=== PATIENT | male | born 1930 | race Caucasian/White ===

== ENCOUNTER 2016-03-31 13:15 | Emergency (ER) | payer MEDICARE, OTHER ==
--- NOTE | 2016-03-31 15:21 | ED Physician Documentation ---
Fall - HISTORIAN Historian: patient, child - HPI Stated Complaint: laceration to L knee Chief Complaint: Fall Additional Information: fall w/lac lt supra patellar area-avulsion type Onset: just prior to arrival Where: park Context: other (leg just gave way) r: moderate Associated Symptoms:: no loss of consciousness Location of Pain/Injury: lower extremity Injury to Right Extremity: none Injury to Left Extremity: knee - ROS CONST: no problems, other (has had previous episodes of legs just give-way) MS/SKIN/LYMPH: denies: weakness, numbness, neck pain, back pain, ankle swelling , leg swelling EYES/ENT: denies: problems with vision, nasal drainage CVS/RESP: none GI/: denies: problems urinating, nausea, vomiting - PAST HX Past History: COPD, other (djd) Allergies/Adverse Reactions: Allergies Allergy/AdvReac Type Severity Reaction Status Date / Time dextromethorphan HBr Allergy Verified 01/11/16 19:48 [From NyQuil] doxylamine succinate Allergy Verified 01/11/16 19:48 [From NyQuil] pseudoephedrine HCl Allergy Verified 01/11/16 19:48 [From NyQuil] hydrocodone AdvReac Mental Verified 01/11/16 19:48 Status Changes Home Medications: Ambulatory Orders Medication Instructions Recorded Arformoterol Tartrate [Brovana] 15 mcg IH BID 07/25/14 Budesonide [Pulmicort] 1 unit INH BID 07/25/14 Ipratropium [place] [Atrovent] 1 unit INH DIRECTED 07/25/14 Cyclobenzaprine HCl [Flexeril] 5 mg PO TID PRN #30 tablet 10/06/15 Chlorzoxazone 500 mg PO QID u2 10/20/15 Oxycodone HCl/Acetaminophen 1 each PO QID PRN u2 10/20/15 [Percocet 5-325 Mg Tablet] Doxycycline Hyclate 100 mg PO BID #20 tablet 01/03/16 - SOCIAL HX Smoking History: non-smoker Alcohol Use: none Drug Use: none - FAMILY HX Family History: no significant history - VITAL SIGNS Vital Signs: Vital Signs Temp Pulse Resp BP Pulse Ox 99.0 F 104 H 16 102/77 94 03/31/16 13:18 03/31/16 13:18 03/31/16 13:18 03/31/16 13:18 03/31/16 13:18 - REVIEWED ASSESSMENTS Nursing Assessment Reviewed: Yes Vitals Reviewed: Yes Procedures Wound Location: lower extremity (lt knee) Wound's Depth, Shape: irregular, flap, contused tissue Wound Explored: no foreign body removed Betadine Prep?: Yes (picked up edges exp underneath cleanse w/betadine) Anesthesia: 1% Lidocaine Wound Repaired With: sutures Suture Size/Type: 3:0 Layer Closure?: No Sterile Dressing Applied?: Yes Splint Applied?: Yes Sling Applied?: No ED Results Lab/Radiology - Radiology Radiology Impressions: xray lt knee=no apparent fracture - Orders Orders: ED Orders Category Date Time Status KNEE 3 VIEWS [RAD] Stat Exams 03/31/16 Ordered Fall Physical Exam - Physical Exam General Appearance: mild distress Head: non-tender, no swelling, no obvious injury Neck: non-tender, painless ROM Eye: REYNA, EOMI ENT: nml external inspection Resp/CVS: chest non-tender, breath sounds nml, no resp. distress, heart sounds nml Abdomen: soft, non-tender Neuro: oriented x3, sensation nml, motor nml Skin: color nml, no rash. No: cyanosis, diaphoresis, pallor Back: normal inspection, no CVA tenderness Extremities: other (jagged 3" lac supra patellar) Joint: joints nml, nml ROM, Nml gait/weight bearing. No: ligamentous instability, effusion, click/crepitus, limited ROM - Vickie Coma Score Eyes Open: Spontaneous Speech: Oriented Motor: Obeys Commands Discharge Clincal Impression: fall w/3" laceration lt knee Home Medications: Ambulatory Orders Arformoterol Tartrate [Brovana] 15 mcg IH BID 07/25/14 Budesonide [Pulmicort] 1 unit INH BID 07/25/14 Ipratropium [place] [Atrovent] 1 unit INH DIRECTED 07/25/14 Cyclobenzaprine HCl [Flexeril] 5 mg PO TID PRN #30 tablet 10/06/15 Chlorzoxazone 500 mg PO QID u2 10/20/15 Oxycodone HCl/Acetaminophen [Percocet 5-325 Mg Tablet] 1 each PO QID PRN u2 Doxycycline Hyclate 100 mg PO BID #20 tablet 01/03/16 Comments: keep clean dry chg dressing prn sutures out approx 7-10 days-renee bandage dressing-sent betadine home for cleansing keflex given-tylenol prn pain Condition: Good Disposition: 01 HOME, SELF-CARE Decision to Admit: NO Decision Time: 16:40
[2016-03-31] MEDS ORDERED: Lidocaine 1% 5ml(IM or SUTURE)(PAIN CLINIC) ONE ×2 (15:31→15:33)
--- NOTE | 2016-03-31 16:51 | Diagnostic Imaging Report ---
[facility] [address] [facility].[address] 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 History: LEFT KNEE PAIN AND LACERATION AFTER FALL Findings: The osseous structures are intact without fracture. There is mild narrowing of the tibiofemoral joint space. There is no joint effusion or soft tissue swelling. Vascular calcifications are present. Impression: 1. the of the tip No acute osseous abnormality. Electronically signed on Mar 31, 2016 3:52:56 PM LEAD MANUFACTURING ENGINEER by: Blayne FROST
[2016-03-31 17:02] VITALS: BP 135/73
== END 2016-03-31 16:45 | disposition home or self-care (01) ==
LOC: ED 13:15
DX: S81.012A Laceration without foreign body, left knee, initial encounter (principal); W19.XXXA Unspecified fall, initial encounter; Y93.9 Activity, unspecified; Y99.9 Unspecified external cause status
CPT/HCPCS: 12002; 73562; 99283; 99284

== ENCOUNTER 2016-04-01 19:31 | Emergency (ER) | payer MEDICARE, OTHER ==
[2016-04-01] MEDS ORDERED: BUPIVACAINE HCL/PF 5 MG/ML 10ML VIAL IV ONE (19:56)
[2016-04-01] MEDS: BUPIVACAINE HCL/PF 5 MG/ML 10ML VIAL IJ ONE (20:00)
[2016-04-01 20:05] VITALS: BP 88/48
--- NOTE | 2016-04-01 20:35 | ED Physician Documentation ---
General Adult - HISTORIAN Historian: patient, child (daughter, son) - HPI Stated Complaint: fell and tore stitches Chief Complaint: Laceration/Recheck/Suture Additional Information: Fell yesterday and stitches placed left knee last evening. Got up from toilet and left knee buckled this evening. All but one stitch torn apart. Per son, left knee ligaments are loose and knee is inoperable because of patient's other health problems. No LOC. No new injury. - ROS CONST: no problems - PAST HX Past History: other (cardiac disease, other (Prostate CA, constipation, COPD, CHR, arthritis, HLD)) Allergies/Adverse Reactions: Allergies Allergy/AdvReac Type Severity Reaction Status Date / Time dextromethorphan HBr Allergy Verified 01/11/16 19:48 [From NyQuil] doxylamine succinate Allergy Verified 01/11/16 19:48 [From NyQuil] pseudoephedrine HCl Allergy Verified 01/11/16 19:48 [From NyQuil] hydrocodone AdvReac Mental Verified 01/11/16 19:48 Status Changes Home Medications: Ambulatory Orders Medication Instructions Recorded Arformoterol Tartrate [Brovana] 15 mcg IH BID 07/25/14 Budesonide [Pulmicort] 1 unit INH BID 07/25/14 Ipratropium [place] [Atrovent] 1 unit INH DIRECTED 07/25/14 Cyclobenzaprine HCl [Flexeril] 5 mg PO TID PRN #30 tablet 10/06/15 Chlorzoxazone 500 mg PO QID u2 10/20/15 Oxycodone HCl/Acetaminophen 1 each PO QID PRN u2 10/20/15 [Percocet 5-325 Mg Tablet] Doxycycline Hyclate 100 mg PO BID #20 tablet 01/03/16 Cephalexin [Keflex] 500 mg PO QID #30 capsule 03/31/16 - SOCIAL HX Smoking History: non-smoker - FAMILY HX Family History: No - VITAL SIGNS Vital Signs: Vital Signs Temp Pulse Resp BP Pulse Ox 98.2 F 86 18 88/48 92 04/01/16 19:32 04/01/16 19:32 04/01/16 19:32 04/01/16 19:32 04/01/16 19:32 - REVIEWED ASSESSMENTS Nursing Assessment Reviewed: Yes Vitals Reviewed: Yes Procedures Wound Location: lower extremity (left knee) Wound's Depth, Shape: irregular (sub q, 12 cm) Wound Explored: no foreign body removed Betadine Prep?: No (hibiclens) Anesthesia: 0.5% Sensorcaine Volume of Anesthetic: 3 Wound Repaired With: sutures Suture Size/Type: 3:0 Number of Sutures: 3 (one suture remaining medially from yesterday. ) Layer Closure?: No Sterile Dressing Applied?: Yes (and renee) ED Results Lab/Radiology - Orders Orders: ED Orders Category Date Time Status Bupivacaine HCl/Pf [Marcaine 0.5%] Med 04/01/16 19:55 Discontinued 25 mg IJ NOW ONE Bupivacaine HCl/Pf [[place]aine 0.5%] Med 04/01/16 19:56 Discontinued 50 mg IV .STK-MED ONE General Adult Physical Exam - PHYSICAL EXAM GENERAL APPEARANCE: no distress EENT: ENT inspection normal NECK: normal inspection, supple RESPIRATORY: no resp distress SKIN: warm/dry, normal color, other (10-12 cm irregular laceration diagonally across left anterior knee) EXTREMITIES: no evidence of injury (except as above) NEURO: CN's nml as tested, motor nml, sensation nml Discharge Clincal Impression: Laceration of left knee Qualifiers: Encounter type: subsequent encounter Qualified Code(s): S81.012D - Laceration without foreign body, left knee, subsequent encounter Clincal Impression: (Ruled Out): Laceration of left knee with complication Additional Instructions: Keep the stitches clean and dry. Continue your antibiotics. Ask your provider to remove the stitches in 8-10 days. If the area seems to be infected return to the ER immediately. Home Medications: Ambulatory Orders Arformoterol Tartrate [Brovana] 15 mcg IH BID 07/25/14 Budesonide [Pulmicort] 1 unit INH BID 07/25/14 Ipratropium [place] [Atrovent] 1 unit INH DIRECTED 07/25/14 Cyclobenzaprine HCl [Flexeril] 5 mg PO TID PRN #30 tablet 10/06/15 Chlorzoxazone 500 mg PO QID u2 10/20/15 Oxycodone HCl/Acetaminophen [Percocet 5-325 Mg Tablet] 1 each PO QID PRN u2 Doxycycline Hyclate 100 mg PO BID #20 tablet 01/03/16 Cephalexin [Keflex] 500 mg PO QID #30 capsule 03/31/16 Condition: Good Disposition: 01 HOME, SELF-CARE Decision to Admit: NO Decision Time: 20:35
[2016-04-01] MEDS: TRIPLE ANTIBIOTIC OINTMENT PAC 1 PACKET TOP ONE (20:45)
== END 2016-04-01 20:53 | disposition home or self-care (01) ==
LOC: ED 19:31
DX: S81.012D Laceration without foreign body, left knee, subsequent encounter (principal); W19.XXXD Unspecified fall, subsequent encounter; Y93.9 Activity, unspecified; Y99.9 Unspecified external cause status
CPT/HCPCS: J3490 ×2; 12002; 99284

== ENCOUNTER 2016-04-04 15:46 | Emergency (ER) | payer MEDICARE, OTHER ==
--- NOTE | 2016-04-04 16:18 | ED Physician Documentation ---
Upper Respiratory Symptoms - HISTORIAN Historian: patient, child - HPI Chief Complaint: Cough/ Upper Respiratory Additional Information: recent exab cvough wheezing fever pmh bronchitis pneumonia-recent falls-legs just give way Onset: days ago (2-3) Duration: intermittent episodes Context: denies: recent foreign travel, insect bite(s) Associated Symptoms: fever, chills, chest pain, productive cough, shortness of breath, hurts to breathe Worsened by Deep Breath: Yes Further Comments: yes - ROS CONST/EYES: weakness CVS/RESP: shortness of breath LYMPH: other (recent lacerations lt knee fr falls naina in bath room). 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) Surgeries/Procedures: appendectomy Allergies/Adverse Reactions: Allergies Allergy/AdvReac Type Severity Reaction Status Date / Time dextromethorphan HBr Allergy Verified 01/11/16 19:48 [From NyQuil] doxylamine succinate Allergy Verified 01/11/16 19:48 [From NyQuil] pseudoephedrine HCl Allergy Verified 01/11/16 19:48 [From NyQuil] hydrocodone AdvReac Mental Verified 01/11/16 19:48 Status Changes Home Medications: Ambulatory Orders Medication Instructions Recorded Arformoterol Tartrate [Brovana] 15 mcg IH BID 07/25/14 Budesonide [Pulmicort] 1 unit INH BID 07/25/14 Ipratropium [place] [Atrovent] 1 unit INH DIRECTED 07/25/14 Cyclobenzaprine HCl [Flexeril] 5 mg PO TID PRN #30 tablet 10/06/15 Chlorzoxazone 500 mg PO QID u2 10/20/15 Oxycodone HCl/Acetaminophen 1 each PO QID PRN u2 10/20/15 [Percocet 5-325 Mg Tablet] Doxycycline Hyclate 100 mg PO BID #20 tablet 01/03/16 Cephalexin [Keflex] 500 mg PO QID #30 capsule 03/31/16 - SOCIAL HX Smoking History: non-smoker Alcohol Use: none Drug Use: none - FAMILY HX Family History: no significant history - VITAL SIGNS Vital Signs: Vital Signs Temp Pulse Resp BP Pulse Ox 99.3 F 84 22 102/63 92 04/04/16 15:46 04/04/16 15:46 04/04/16 15:46 04/04/16 15:46 04/04/16 15:46 - REVIEWED ASSESSMENTS Nursing Assessment Reviewed: Yes Vitals Reviewed: Yes ED Results Lab/Radiology - Lab Results Lab Results: Lab Results 04/04/16 04/04/16 16:55 16:55 WBC 3.40 K/ul L K/ul (4.00-12.00) RBC 3.99 M/ul M/ul (3.90-5.20) Hgb 11.9 g/dL L g/dL (12.0-18.0) Hct 36.7 % L % (37.0-53.0) MCV 92.1 fl fl (80.0-100.0) MCH 29.8 pg pg (28.0-34.0) MCHC 32.4 g/dL g/dL (30.0-36.0) RDW 15.0 % H % (11.3-14.3) Plt Count 192 K/mm3 K/mm3 (130-400) Seg Neutrophils % 66 % % (39-79) Band Neutrophils % 3 % % (0-12) Lymphocytes % 14 % L % (16-50) Monocytes % 11 % % (0-11) Eosinophils % 3 % % (0-7) Basophils % 1 % % (0-2) Reactive Lymphocytes 2 % % (0-5) Plt Morphology Comment Normal (NORMAL) RBC Morph Comment Normal (NORMAL) Sodium 135 mmol/L L mmol/L (136-145) Potassium 4.1 mmol/L mmol/L (3.5-5.0) Chloride 96 mmol/L L mmol/L (98-110) Carbon Dioxide 28 mmol/L mmol/L (20-32) BUN 24 mg/dL mg/dL (10-26) Creatinine 1.0 mg/dL mg/dL (0.4-1.5) Estimated Creat Clear 34 Est GFR ( Amer) > 60 (60 - ) Est GFR (Non-Af Amer) > 60 (60 - ) Glucose 95 mg/dL mg/dL (70-99) Calcium 9.6 mg/dL mg/dL (8.5-10.5) Total Bilirubin 0.4 mg/dL mg/dL (0.2-1.2) AST 26 U/L U/L (0-41) ALT 18 U/L U/L (0-45) Alkaline Phosphatase 67 U/L U/L (46-116) Total Protein 7.2 g/dL g/dL (6.0-8.5) Albumin 3.9 g/dL g/dL (3.0-5.5) - Radiology Radiology Impressions: chest atelectalis nodules udo - Orders Orders: ED Orders Category Date Time Status Place Saline Lock/IV Now Care 04/04/16 16:14 Active CHEST P.A.&LAT 2 VIEWS [RAD] Stat Exams 04/04/16 Completed ARTERIAL BLOOD GAS Stat Lab 04/04/16 Uncollected CBC/PLATELET/DIFF Routine Lab 04/04/16 16:55 Completed CMP Stat Lab 04/04/16 16:55 Completed Ipratropium/Albuterol Sulfate [Duoneb] Med 04/04/16 17:24 Discontinued 3 ml NEB NOW ONE Ipratropium/Albuterol Sulfate [Duoneb] Med 04/04/16 17:25 Discontinued 3 ml NEB NOW ONE EKG WITH COMPARISON Stat Ther 04/04/16 Ordered Upper Respiratory Symptoms - EXAM General Appearance: mild distress, moderate distress EENT: eyes nml inspection, ear nml, pharynx nml, airway nml. No: pain over sinuses, pharyngeal erythema Neck: normal inspection Respiratory: speaks full sentences, decreased air movement, wheezes, rales. No : breath sounds nml Abdomen: non-tender CVS: reg rate & rhythm, heart sounds normal Skin: color nml, no rash, warm,dry Extremities: No: normal range of motion Neuro/Psych: oriented x3, neuro intact, mood/affect nml Discharge Clincal Impression: Asthma, very advanced djd, frequent falls Referrals: Diego Ross MD [Primary Care Provider] - 2 Days Home Medications: Ambulatory Orders Arformoterol Tartrate [Brovana] 15 mcg IH BID 07/25/14 Budesonide [Pulmicort] 1 unit INH BID 07/25/14 Ipratropium [place] [Atrovent] 1 unit INH DIRECTED 07/25/14 Cyclobenzaprine HCl [Flexeril] 5 mg PO TID PRN #30 tablet 10/06/15 Chlorzoxazone 500 mg PO QID u2 10/20/15 Oxycodone HCl/Acetaminophen [Percocet 5-325 Mg Tablet] 1 each PO QID PRN u2 Doxycycline Hyclate 100 mg PO BID #20 tablet 01/03/16 Cephalexin [Keflex] 500 mg PO QID #30 capsule 03/31/16 Comments: pt relates breathing much better Condition: Fair Disposition: 01 HOME, SELF-CARE Decision to Admit: NO Decision Time: 18:32
[2016-04-04 17:01] LABS: MEAN CORPUSCULAR HEMOGLOBIN 29.8 pg (28.0-34.0)
[2016-04-04 17:18] LABS: eGFR (African) > 60; eGFR (Non-African) > 60
[2016-04-04] MEDS ORDERED: IPRATROPIUM/ALBUTEROL SULFATE 3 ML AMPUL.NEB NEB ONE (17:24)
[2016-04-04 17:30] LABS: BASOPHILS % 1 % (0-2); EOSINOPHILS % 3 % (0-7); MONOCYTES % 11 % (0-11); SEGMENTED NEUTROPHILS % 66 % (39-79)
--- NOTE | 2016-04-04 17:38 | Diagnostic Imaging Report ---
[facility] [address] [facility].[address] 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 Questionable lung masses in the upper lobes right more than left in the range of [address] scan of the chest is required. 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
[2016-04-04] MEDS: IPRATROPIUM/ALBUTEROL SULFATE 3 ML AMPUL.NEB NEB ONE (18:09)
[2016-04-04 19:05] VITALS: BP 113/74
== END 2016-04-04 18:40 | disposition home or self-care (01) ==
LOC: ED 15:46
DX: J45.909 Unspecified asthma, uncomplicated (principal); M19.90 Unspecified osteoarthritis, unspecified site; Z91.81 History of falling
CPT/HCPCS: 71020; 80053; 85025; 99283; S1016

== ENCOUNTER 2016-04-24 11:53 | Emergency (ER) | payer MEDICARE, OTHER ==
[2016-04-24] MEDS ORDERED: methylPREDNISolone SOD SUCC 40 MG/ML VIAL IM ONE (12:21)
--- NOTE | 2016-04-24 12:25 | ED Physician Documentation ---
General Adult - HISTORIAN Historian: patient, child (daughter) - HPI Stated Complaint: Diarrhea, Knee Pain Chief Complaint: General Adult Additional Information: Takes 200 mg docusate each morning, then an additional 100 mg sometimes in the afternoon. Also given MOM yesterday. During the night he had several bowel movements and now left knee is sore. Has severe DJD left knee and is not a surgical candidate. Wants a shot for the knee p[ain (hydrocortisone) and something for the diarrhea. Also takes oxycodone 5/325 at HS for knee pain. - ROS CONST: no problems - PAST HX Past History: CHF, other (HLD, arthritids, prostate cancer, COPDcardiac disease) Allergies/Adverse Reactions: Allergies Allergy/AdvReac Type Severity Reaction Status Date / Time dextromethorphan HBr Allergy Verified 04/24/16 12:06 [From NyQuil] doxylamine succinate Allergy Verified 04/24/16 12:06 [From NyQuil] pseudoephedrine HCl Allergy Verified 04/24/16 12:06 [From NyQuil] hydrocodone AdvReac Mental Verified 04/24/16 12:06 Status Changes Home Medications: Ambulatory Orders Medication Instructions Recorded Arformoterol Tartrate [Brovana] 15 mcg IH BID 07/25/14 Budesonide [Pulmicort] 1 unit INH BID 07/25/14 Ipratropium [place] [Atrovent] 1 unit INH DIRECTED 07/25/14 Oxycodone HCl/Acetaminophen 1 each PO QID PRN u2 10/20/15 [Percocet 5-325 Mg Tablet] - SOCIAL HX Smoking History: non-smoker - FAMILY HX Family History: No - VITAL SIGNS Vital Signs: Vital Signs Temp Pulse Resp BP Pulse Ox 97.8 F 96 H 18 127/77 95 04/24/16 11:55 04/24/16 11:55 04/24/16 11:55 04/24/16 11:55 04/24/16 11:55 - REVIEWED ASSESSMENTS Nursing Assessment Reviewed: Yes Vitals Reviewed: Yes ED Results Lab/Radiology - Orders Orders: ED Orders Category Date Time Status methylPREDNISolone SOD SUCC [Solu-MEDROL] Med 04/24/16 12:21 Once 40 mg IM NOW ONE General Adult Physical Exam - PHYSICAL EXAM GENERAL APPEARANCE: no distress EENT: eye inspection normal NECK: normal inspection RESPIRATORY: no resp distress SKIN: warm/dry, normal color, other (Has 2.5x4 cm healing, area left ant knee) NEURO: CN's nml as tested, motor nml, sensation nml Discharge Clincal Impression: Osteoarthritis Qualifiers: Osteoarthritis location: knee Osteoarthritis type: unspecified Laterality: left Qualified Code(s): 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 Home Medications: Ambulatory Orders Arformoterol Tartrate [Brovana] 15 mcg IH BID 07/25/14 Budesonide [Pulmicort] 1 unit INH BID 07/25/14 Ipratropium [place] [Atrovent] 1 unit INH DIRECTED 07/25/14 Oxycodone HCl/Acetaminophen [Percocet 5-325 Mg Tablet] 1 each PO QID PRN u2 Condition: Good Disposition: 01 HOME, SELF-CARE Decision to Admit: NO Decision Time: 12:30
[2016-04-24 13:10] VITALS: BP 118/68
== END 2016-04-24 13:06 | disposition home or self-care (01) ==
LOC: ED 11:53
DX: M17.12 Unilateral primary osteoarthritis, left knee (principal)
CPT/HCPCS: 96372; 99283; J2920; J1030

== ENCOUNTER 2016-06-27 18:43 | Emergency (ER) | payer MEDICARE, OTHER ==
[2016-06-27] MEDS ORDERED: NORMAL SALINE 500 ML IV.SOLN IV ONE (19:29)
[2016-06-27] MEDS ORDERED: 0.9 % SODIUM CHLORIDE 1,000 ML IV ONE (19:33)
[2016-06-27 19:38] LABS: BASOPHILS % 0.4 (0.0-1.5); EOSINOPHILS % 1.1 % (0.0-6.8); MEAN CORPUSCULAR VOLUME 92.4 fl (80.0-100.0); MONOCYTES % 7.6 % (0.0-11.0); NEUTROPHILS # 9.3 # k/uL (1.4-7.7)
[2016-06-27] MEDS: IPRATROPIUM/ALBUTEROL SULFATE 3 ML AMPUL.NEB NEB ONE (19:40)
[2016-06-27 19:50] LABS: eGFR (African) > 60; eGFR (Non-African) > 60
--- NOTE | 2016-06-27 21:06 | ED Physician Documentation ---
Dyspnea - HISTORIAN Historian: child - HPI Stated Complaint: airway closing Chief Complaint: Dyspnea Additional Information: he isn't complaining but family said he's not responding to the home breathing treatments. no other complaints Onset: days ago Duration: continues in ED Initiating Event: upper respiratory illness Severity: moderate Exacerbated By: exertion Further Comments: no - ROS CONST: no problems EYES/ENT: none GI/: none NEURO/PSYCH: denies: headache MS/SKIN/LYMPH: none - PAST HX Lung Disease: COPD, pneumonia Cardiac Disease: none PE Risk Factors: none Surgeries/Procedures: none Other History: none Immunizations: UTD Allergies/Adverse Reactions: Allergies Allergy/AdvReac Type Severity Reaction Status Date / Time dextromethorphan HBr Allergy Verified 06/27/16 19:03 [From NyQuil] doxylamine succinate Allergy Verified 06/27/16 19:03 [From NyQuil] pseudoephedrine HCl Allergy Verified 06/27/16 19:03 [From NyQuil] hydrocodone AdvReac Mental Verified 06/27/16 19:03 Status Changes Home Medications: Ambulatory Orders Medication Instructions Recorded Arformoterol Tartrate [Brovana] 15 mcg IH BID 07/25/14 Budesonide [Pulmicort] 1 unit INH BID 07/25/14 Ipratropium [place] [Atrovent] 1 unit INH DIRECTED 07/25/14 - SOCIAL HX Smoking History: quit greater than 1 year Alcohol Use: none Drug Use: none - FAMILY HX Family History: none - VITAL SIGNS Vital Signs: Vital Signs Temp Pulse Resp BP Pulse Ox 118/68 04/24/16 13:06 - REVIEWED ASSESSMENTS Nursing Assessment Reviewed: Yes Vitals Reviewed: Yes ED Results Lab/Radiology - Lab Results Lab Results: Lab Results 06/27/16 06/27/16 19:31 19:31 WBC 11.00 K/ul K/ul (4.00-12.00) RBC 4.11 M/ul M/ul (3.90-5.20) Hgb 12.3 g/dL g/dL (12.0-18.0) Hct 38.0 % % (37.0-53.0) MCV 92.4 fl fl (80.0-100.0) MCH 30.0 pg pg (28.0-34.0) MCHC 32.4 g/dL g/dL (30.0-36.0) RDW 15.2 % H % (11.3-14.3) Plt Count 201 K/mm3 K/mm3 (130-400) Neut % (Auto) 84.9 % H % (39.0-79.0) Lymph % (Auto) 3.9 % L % (16.0-50.0) [place] % (Auto) 7.6 % % (0.0-11.0) Eos % (Auto) 1.1 % % (0.0-6.8) Baso % (Auto) 0.4 (0.0-1.5) Neut # 9.3 # k/uL H # k/uL (1.4-7.7) Lymph # 0.4 # k/uL L # k/uL (0.6-4.0) [place] # 0.8 # k/uL # k/uL (0.0-0.9) Eos # 0.1 # k/uL # k/uL (0.0-0.6) Baso # 0.0 # k/uL # k/uL (0.0-0.5) Reactive Lymphs % 2.0 % % (0.0-5.0) Reactive Lymphs # 0.2 # k/uL # k/uL (0.0-0.8) Sodium 139 mmol/L mmol/L (136-145) Potassium 3.9 mmol/L mmol/L (3.5-5.0) Chloride 107 mmol/L mmol/L (98-110) Carbon Dioxide 24 mmol/L mmol/L (20-32) BUN 39 mg/dL H mg/dL (10-26) Creatinine 1.0 mg/dL mg/dL (0.4-1.5) Estimated Creat Clear 32 Est GFR ( Amer) > 60 (60 - ) Est GFR (Non-Af Amer) > 60 (60 - ) Glucose 123 mg/dL H mg/dL (70-99) Calcium 9.5 mg/dL mg/dL (8.5-10.5) Total Bilirubin 0.4 mg/dL mg/dL (0.2-1.2) AST 19 U/L U/L (0-41) ALT 17 U/L U/L (0-45) Alkaline Phosphatase 70 U/L U/L (46-116) Creatine Kinase 98 U/L U/L (0-225) Total Protein 7.0 g/dL g/dL (6.0-8.5) Albumin 4.2 g/dL g/dL (3.0-5.5) - Radiology Radiology Impressions: bronchitis lung nodule - Orders Orders: ED Orders Category Date Time Status Place Saline Lock/IV Now Care 06/27/16 19:26 Active CHEST P.A.&LAT 2 VIEWS [RAD] Stat Exams 06/27/16 19:26 Taken CBC/PLATELET/DIFF Routine Lab 06/27/16 19:31 Completed CMP Routine Lab 06/27/16 19:31 Completed CREATINE KINASE Routine Lab 06/27/16 19:31 Completed 0.9 % Sodium Chloride [Normal Saline] Med 06/27/16 19:29 Once 1,000 ml IV NOW ONE 0.9 % Sodium Chloride [Normal Saline] 1,000 ml Med 06/27/16 19:33 Discontinued IV .STK-MED Ipratropium/Albuterol Sulfate [Duoneb] Med 06/27/16 19:26 Discontinued 3 ml NEB NOW ONE Levofloxacin [Levaquin] Med 06/27/16 21:04 Once 500 mg PO NOW ONE Oxygen Daily Oxygen 06/27/16 19:30 Ordered Dyspnea Physical Exam - EXAM General Appearance: no acute distress, alert EENT: ENT inspection normal, pharynx normal. No: no signs of dehydration Neck: nml inspection Respiratory: no resp. distress, breath sounds nml, no pain on inspiration, speaks full sentences CVS: tachycardia Abdomen: non-tender Skin: color nml, no rash Extremities: non-tender Neuro/Psych: oriented x3, mood/affect nml, cognition abnml ([facility]) Discharge Clincal Impression: Bronchitis, Absolute hypovolemia Home Medications: Ambulatory Orders Arformoterol Tartrate [Brovana] 15 mcg IH BID 07/25/14 Budesonide [Pulmicort] 1 unit INH BID 07/25/14 Ipratropium [place] [Atrovent] 1 unit INH DIRECTED 07/25/14 Condition: Stable Disposition: 01 HOME, SELF-CARE Decision to Admit: NO Date of Decison to Admit: 06/27/16 Decision Time: 21:16
[2016-06-27] MEDS: LEVOFLOXACIN 500 MG TABLET PO ONE (21:14)
[2016-06-27 21:34] VITALS: BP 118/62
--- NOTE | 2016-06-28 06:40 | Diagnostic Imaging Report ---
NEENA WAGONER [facility] [address] [facility].[address] [address] Report Submission Date: June 27, 2016 8:22:28 PM CDT Patient Study Name: CORY BASILIO Date: June 27, 2016 7:59:53 PM CDT Modality Type: CR Gender: M Description: CHEST : [birth year] Institution: [facility] Physician: NEENA WAGONER Chest 2 views History: Shortness of breath Findings: Bibasilar reticular opacities are unchanged since April 04, 2016. There is no confluent air space infiltrate or pleural effusion. A small right upper lobe nodule is unchanged in retrospect. Aortic atherosclerosis and advanced bilateral shoulder erosive arthropathy are again noted. Heart size is normal. Impression: 1. Bibasilar reticular opacities without change, suggesting atelectasis and/or bronchitis. 2. Indeterminate right upper lobe nodule. Recommend nonemergent chest CT followup. 3. Atherosclerosis and advanced bilateral shoulder erosive arthropathy. Electronically signed on June 27, 2016 8:22:28 PM CDT by: Dennis FROST
== END 2016-06-27 21:33 | disposition home or self-care (01) ==
LOC: ED 18:43
DX: J20.9 Acute bronchitis, unspecified (principal)
CPT/HCPCS: 71020; 80053; 82550; 85025; J7030; 96360; 99283; S1016

== ENCOUNTER 2016-08-28 10:44 | Emergency (ER) | payer MEDICARE, OTHER ==
[2016-08-28 11:49] VITALS: BP 115/69
--- NOTE | 2016-08-28 12:48 | ED Physician Documentation ---
Fall - HISTORIAN Historian: patient, child - HPI Chief Complaint: Fall Additional Information: FELL IN BEDROOM APPROX 1 MO AGO ON LT ELBOW-PRKOG WORSE AND NOW SHOULDER SIG PAIN. HURTS TO MOVE ELBOW AND SHOULDER-OROG WORSE Where: home Context: lost balance r: moderate Associated Symptoms:: no loss of consciousness Further Comments: yes (PT SLIGHT BUILD AND APPEARS UNDER WEIGHT-LT CHEST ALSO BOTHERS) - ROS CONST: no problems MS/SKIN/LYMPH: weakness EYES/ENT: none CVS/RESP: none GI/: denies: problems urinating, nausea, vomiting - PAST HX Past History: asthma, COPD (BRONCHITIS AND CA SKIN-REMOVED) Allergies/Adverse Reactions: Allergies Allergy/AdvReac Type Severity Reaction Status Date / Time dextromethorphan HBr Allergy Verified 08/28/16 11:23 [From NyQuil] doxylamine succinate Allergy Verified 08/28/16 11:23 [From NyQuil] pseudoephedrine HCl Allergy Verified 08/28/16 11:23 [From NyQuil] hydrocodone AdvReac Mental Verified 08/28/16 11:23 Status Changes Home Medications: Ambulatory Orders Medication Instructions Recorded Arformoterol Tartrate [Brovana] 15 mcg IH BID 07/25/14 Budesonide [Pulmicort] 1 unit INH BID 07/25/14 Ipratropium [place] [Atrovent] 1 unit INH DIRECTED 07/25/14 - SOCIAL HX Smoking History: non-smoker Alcohol Use: none Drug Use: none - FAMILY HX Family History: no significant history - VITAL SIGNS Vital Signs: Vital Signs Temp Pulse Resp BP Pulse Ox 118/62 06/27/16 21:33 - REVIEWED ASSESSMENTS Nursing Assessment Reviewed: Yes Vitals Reviewed: Yes ED Results Lab/Radiology - Radiology Radiology Impressions: marked djd probable fx olecranon fx - Orders Orders: ED Orders Category Date Time Status CHEST P.A.&LAT 2 VIEWS [RAD] Stat Exams 08/28/16 Ordered ELBOW 3 VIEWS [RAD] Stat Exams 08/28/16 Ordered SHOULDER 2 VIEWS OR MORE [RAD] Stat Exams 08/28/16 Ordered Fall Physical Exam - Physical Exam General Appearance: mild distress, moderate distress Head: non-tender, no swelling, no obvious injury Neck: non-tender, painless ROM, trachea midline Eye: REYNA, EOMI Resp/CVS: no ecchymosis, breath sounds nml, no resp. distress, heart sounds nml , rib tenderness (ON LEFT) Abdomen: soft, non-tender Neuro: oriented x3, sensation nml, motor nml, mood/affect nml Skin: color nml, no rash. No: cyanosis, diaphoresis Joint: limited ROM (LT SHOULDER ELBOW) - [place] Coma Score Eyes Open: Spontaneous Speech: Oriented Motor: Obeys Commands Discharge Clincal Impression: fracture elbow and shoulder fr fall, very marked djd Referrals: Diego Ross MD [Primary Care Provider] - 2 Days Additional Instructions: shoulder immob---f/u w/orthopedics Home Medications: Ambulatory Orders Arformoterol Tartrate [Brovana] 15 mcg IH BID 07/25/14 Budesonide [Pulmicort] 1 unit INH BID 07/25/14 Ipratropium [place] [Atrovent] 1 unit INH DIRECTED 07/25/14 Condition: Good Disposition: 01 HOME, SELF-CARE Decision to Admit: NO Decision Time: 12:48
--- NOTE | 2016-08-28 16:24 | Diagnostic Imaging Report ---
[facility] [address] [facility].[address] [address] Report Submission Date: Aug 28, 2016 11:52:46 AM CDT Patient Study Name: CORY BASILIO Date: Aug 28, 2016 11:23:29 AM CDT Modality Type: CR Gender: M Description: UPPER EXTREMITY : [birth year] Institution: [facility] Physician: ENEDELIA PATRICK - ER Examination: Plain film elbow History: Fall Comparison exams: None provided Findings: 4 views of the elbow demonstrates diffuse osteopenia. Lucency involving the olecranon. Radial head and distal humerus without cortical irregularity. Anterior sail sign. Impression: Olecranon fracture with joint effusion. Electronically signed on Aug 28, 2016 11:52:46 AM CDT by: Edgard FROST
--- NOTE | 2016-08-28 16:25 | Diagnostic Imaging Report ---
[facility] [address] [facility] [address] [place], [place]. [address] Report Submission Date: Aug 28, 2016 11:50:20 AM CDT Patient Study Name: CORY BASILIO Date: Aug 28, 2016 11:15:46 AM CDT Modality Type: CR Gender: M Description: CHEST : [birth year] Institution: [facility] Physician: ENEDELIA PATRICK - ER Examination: PA and lateral chest. History: Evaluate lung bishop. Comparison exam: 27 Jun 2016 Findings: PA lateral chest demonstrate a normal cardiac silhouette. Tortuosity of the thoracic aorta with vascular calcifications involving the aortic arch. Lungs without focal infiltrative process. No blunting of the costophrenic margins. Significant degenerative disease of the shoulder articulations. Impression: No acute pulmonary process Electronically signed on Aug 28, 2016 11:50:20 AM CDT by: Edgard FROST
--- NOTE | 2016-08-28 16:25 | Diagnostic Imaging Report ---
[facility] [address] [facility].[address] [address] Report Submission Date: Aug 28, 2016 11:48:16 AM CDT Patient Study Name: CORY BASILIO Date: Aug 28, 2016 11:14:23 AM CDT Modality Type: CR Gender: M Description: SHOULDER : [birth year] Institution: [facility] Physician: ENEDELIA PATRICK - ER Examination: Plain film shoulder History: Fall Comparison exams: None provided Findings: 3 views of the shoulder demonstrates diffuse osteopenia. Resorption of the distal clavicle. Elevation of the humeral head. Region of sclerosis traversing the humeral head/neck. Impression: Significant degenerative changes. Likely impaction injury/fracture the humeral head/neck. Electronically signed on Aug 28, 2016 11:48:16 AM CDT by: Edgard FROST
== END 2016-08-28 12:54 | disposition home or self-care (01) ==
LOC: ED 10:44
DX: S42.402A Unspecified fracture of lower end of left humerus, initial encounter for closed fracture (principal); S42.92XA Fracture of left shoulder girdle, part unspecified, initial encounter for closed fracture; W19.XXXA Unspecified fall, initial encounter; Y93.9 Activity, unspecified; Y99.9 Unspecified external cause status
CPT/HCPCS: 71020; 73030; 73080; 99283

== ENCOUNTER 2016-11-22 11:40 | Emergency (ER) | payer MEDICARE, OTHER ==
--- NOTE | 2016-11-22 11:50 | ED Physician Documentation ---
General Adult - HISTORIAN Historian: patient, child - HPI Stated Complaint: sore area on left great toe since this am Chief Complaint: Skin Rash Onset: hours (5) Timing: still present, worse since Severity: moderate Modifying Factors: no modifying factors Context: Stabbing pain in the toe and in foot now Quality: Stabbing Location: Left great toe into midfoor Further Comments: no Last known Well Date: 11/21/16 Last Known Well Time: 09:00 Last known Well Code/Unknown Code: Unknown - ROS CONST: no problems. denies: fever, sweating, recent illness, weakness EYES/ENT: none CVS/RESP: none GI/: none MS/SKIN/LYMPH: other (great toe - left foot with redness and inflammation ) - PAST HX Past History: other (history of skin cancer ) Other History: none Surgeries/Procedures: other (history of skin cancer removal and appy ) Immunizations: referred to PCP Allergies/Adverse Reactions: Allergies Allergy/AdvReac Type Severity Reaction Status Date / Time dextromethorphan HBr Allergy Verified 11/22/16 12:05 [From NyQuil] doxylamine succinate Allergy Verified 11/22/16 12:05 [From NyQuil] pseudoephedrine HCl Allergy Verified 11/22/16 12:05 [From NyQuil] hydrocodone AdvReac Mental Verified 11/22/16 12:05 Status Changes Home Medications: Ambulatory Orders Medication Instructions Recorded Arformoterol Tartrate [Brovana] 15 mcg IH BID 07/25/14 Budesonide [Pulmicort] 1 unit INH BID 07/25/14 Ipratropium [place] [Atrovent] 1 unit INH DIRECTED 07/25/14 - SOCIAL HX Smoking History: non-smoker Alcohol Use: none Drug Use: none - FAMILY HX Family History: Yes - VITAL SIGNS Vital Signs: Vital Signs Temp Pulse Resp BP Pulse Ox 115/69 08/28/16 12:54 - REVIEWED ASSESSMENTS Nursing Assessment Reviewed: Yes Vitals Reviewed: Yes General Adult Physical Exam - PHYSICAL EXAM GENERAL APPEARANCE: no distress EENT: eye inspection normal, ENT inspection normal, pharynx normal, no signs of dehydration NECK: normal inspection RESPIRATORY: no resp distress CVS: reg rate & rhythm, heart sounds normal, equal pulses ABDOMEN: soft, no organomegaly, normal bowel sounds RECTAL: mass SKIN: other (area on left great toe with redness and inflammation extending in to mid foot -- Pulses + Sensation +) NEURO: oriented X3, CN's nml as tested, motor nml Discharge Clincal Impression: Skin abnormalities Referrals: Diego Ross MD [Primary Care Provider] - 2 Days Condition: Stable Disposition: 01 HOME, SELF-CARE Decision to Admit: NO Date of Decison to Admit: 11/22/16 Decision Time: 12:04
[2016-11-22 12:05] VITALS: BP 128/63
== END 2016-11-22 12:15 | disposition home or self-care (01) ==
LOC: ED 11:40
DX: R21 Rash and other nonspecific skin eruption (principal)
CPT/HCPCS: 99283

== ENCOUNTER 2016-11-25 20:17 | Emergency (ER) | payer MEDICARE, OTHER ==
[2016-11-25] MEDS ORDERED: Lidocaine 1% 5ml(IM or SUTURE)(PAIN CLINIC) ONE (20:32)
[2016-11-25] MEDS ORDERED: Lidocaine 1% 5ml(IM or SUTURE)(PAIN CLINIC) IJ ONE (20:40)
[2016-11-25 20:48] VITALS: BP 135/65
--- NOTE | 2016-11-25 21:02 | ED Physician Documentation ---
Abscess - HISTORIAN Historian: patient, child - HPI Stated Complaint: toe/foot pain Chief Complaint: Abscess Additional Information: abscess dorsum lt great toe here 3days ago rec baCTRIM ds - better - then worse- ready for i and d. Onset: days ago (5) Timing: worse Duration: worse Location: LLE Quality: itchy, painful, burning Identified Cause?: Yes (suspect MRSA) Context: Medication Exposure: antibiotic Context: Other Exposure: infectious illness - ROS CONST: no problems CVS/RESP: denies: chest pain, shortness of breath EYES/ENT: denies: eye redness, eye itching GI/: denies: abdominal pain, problems urinating MS/SKIN/LYMPH: none NEURO/PSYCH: none - PAST HX Past History: other (COPD) Surgeries/Procedures: Yes (APPY) Allergies/Adverse Reactions: Allergies Allergy/AdvReac Type Severity Reaction Status Date / Time dextromethorphan HBr Allergy Verified 11/25/16 20:25 [From NyQuil] doxylamine succinate Allergy Verified 11/25/16 20:25 [From NyQuil] pseudoephedrine HCl Allergy Verified 11/25/16 20:25 [From NyQuil] hydrocodone AdvReac Mental Verified 11/25/16 20:25 Status Changes Home Medications: Ambulatory Orders Medication Instructions Recorded Arformoterol Tartrate [Brovana] 15 mcg IH BID 07/25/14 Budesonide [Pulmicort] 1 unit INH BID 07/25/14 Ipratropium [place] [Atrovent] 1 unit INH DIRECTED 07/25/14 Sulfamethoxazole/Trimethoprim 1 each PO BID 11/25/16 [Bactrim Ds] - SOCIAL HX Smoking History: non-smoker Alcohol Use: none Drug Use: none - FAMILY HX Family History: none (NO PREV MRSA) - VITAL SIGNS Vital Signs: Vital Signs Temp Pulse Resp BP Pulse Ox 98.7 F 93 H 16 135/65 98 11/25/16 20:20 11/25/16 20:20 11/25/16 20:20 11/25/16 20:20 11/25/16 20:20 - REVIEWED ASSESSMENTS Nursing Assessment Reviewed: Yes Vitals Reviewed: Yes Procedures Site: LT GR TOE Blade Size: 15 I & D Procedure: betadine prep, sterile drapes applied, sterile dressing applied ED Results Lab/Radiology - Orders Orders: ED Orders Category Date Time Status Lidocaine 1% 5ml(IM or SUTURE) [Xylocaine] Med 11/25/16 20:32 Discontinued 50 mg .ROUTE .STK-MED ONE Abscess Physical Exam - EXAM General Appearance: mild distress Skin: warm,dry, pointing fluctuant with erythema. No: cyanotic, diaphoretic Location: other (LT GREAT TOE) Symptoms: tenderness Extremities: edema Respiratory: no resp distress, chest non-tender, breath sounds normal CVS: reg. rate & rhythm, heart sounds nml Abdomen: non-tender Neuro/Psych: oriented x3, CN's nml as tested, motor nml, sensation nml, mood/ affect nml Discharge Clincal Impression: ABSCESS LT GR TOE-SUSPECT MRSA Referrals: Diego Ross MD [Primary Care Provider] - 2 Days Comments: FAMILY GIVED BETADINE 4X4'S GAUZE AND INST ON DRESSING CHG AND ADVISED OF THE VERY CONTAGIOUS NATURE OF THE CONDITION Condition: Good Disposition: 01 HOME, SELF-CARE Decision to Admit: NO Decision Time: 21:07
== END 2016-11-25 21:00 | disposition home or self-care (01) ==
LOC: ED 20:17
DX: L02.612 Cutaneous abscess of left foot (principal)
CPT/HCPCS: 10060; 99283

== ENCOUNTER 2016-11-28 12:13 | Emergency (ER) | payer MEDICARE, OTHER ==
--- NOTE | 2016-11-28 12:53 | ED Physician Documentation ---
Lower Extremity Problem - HISTORIAN Historian: patient, child - HPI Stated Complaint: knee pain Chief Complaint: Lower Extremity Problem Additional Information: ac exab ch knee pain lt side-gets occ steroid shots Location of Injury: R knee Timing: worse Recent Injury: No Quality: pain, swelling Exacerbated By: walking Associated Symptoms: denies: chest pain, shortness of breath - ROS CONST: no problems MS/SKIN/LYMPH: none CVS/RESP: none GI/: none EYES/ENT: none - PAST HX Past History: other (htn chronic pain pt) PE Risk Factors: hypertension Surgeries/Procedures: other (I AND D lt great toe suspect MRSA) Allergies/Adverse Reactions: Allergies Allergy/AdvReac Type Severity Reaction Status Date / Time dextromethorphan HBr Allergy Verified 11/28/16 12:32 [From NyQuil] doxylamine succinate Allergy Verified 11/28/16 12:32 [From NyQuil] pseudoephedrine HCl Allergy Verified 11/28/16 12:32 [From NyQuil] hydrocodone AdvReac Mental Verified 11/28/16 12:32 Status Changes Home Medications: Ambulatory Orders Medication Instructions Recorded Arformoterol Tartrate [Brovana] 15 mcg IH BID 07/25/14 Budesonide [Pulmicort] 1 unit INH BID 07/25/14 Ipratropium [place] [Atrovent] 1 unit INH DIRECTED 07/25/14 Sulfamethoxazole/Trimethoprim 1 each PO BID 11/25/16 [Bactrim Ds] Sulfamethoxazole/Trimethoprim 1 each PO BID #8 tablet 11/28/16 [Bactrim Ds] - SOCIAL HX Smoking History: non-smoker Alcohol Use: none Drug Use: none - FAMILY HX Family History: no significant history - VITAL SIGNS Vital Signs: Vital Signs Temp Pulse Resp BP Pulse Ox 99.5 F 86 16 118/66 98 11/28/16 12:24 11/28/16 12:24 11/28/16 12:24 11/28/16 12:24 11/28/16 12:24 - REVIEWED ASSESSMENTS Nursing Assessment Reviewed: Yes Lower Extremity Problem - EXAM General Appearance: moderate distress (lt knee slight swelling pain w/movement) Neuro/Tendon: normal sensation, normal motor functions, normal tendon functions EENT: no signs of dehydration RESPIRATORY: no resp distress, chest non-tender, breath sounds normal CVS: reg rate & rhythm, heart sounds normal JOINT: No: joints nml (sig djd) VASCULAR: no vascular compromise NEURO/PSYCH: oriented X3, CN's nml as tested, motor nml, sensation nml, mood/ affect nml SKIN: warm/dry, normal color. No: cyanosis, diaphoresis, jaundice Discharge Clincal Impression: acute exaberation lt knee pain, recent I AND D LT GR TOE-MRSA Prescriptions: Sulfamethoxazole/Trimethoprim [Bactrim Ds] 1 each PO BID #8 tablet Referrals: Diego Ross MD [Primary Care Provider] - 2 Days Comments: DRINK PLENTY WATER W/BACTRIM Condition: Fair Disposition: 01 HOME, SELF-CARE Decision to Admit: NO Decision Time: 12:59
[2016-11-28] MEDS ORDERED: methylPREDNISolone ACETATE 80 MG/ML VIAL IM ONE (13:00)
[2016-11-28] MEDS: methylPREDNISolone ACETATE 80 MG/ML VIAL IM PRN (13:03)
[2016-11-28 13:19] VITALS: BP 126/65
== END 2016-11-28 13:14 | disposition home or self-care (01) ==
LOC: ED 12:13
DX: M25.562 Pain in left knee (principal)
CPT/HCPCS: J1040 ×2; 96372; 99283

== ENCOUNTER 2016-12-24 10:47 | Inpatient (IN) | payer MEDICARE, OTHER ==
--- NOTE | 2016-12-24 11:13 | ED Physician Documentation ---
Dyspnea - HISTORIAN Historian: patient - HPI Chief Complaint: General Adult Additional Information: Patient states that he has had OA for some years especially with his shoulder, hips and knees. Since the weather has been changing it has gotten worse and he is having more pain. Usually takes some hydrocodone and celebrex for the pain. Patient denies any fever or chills. Has been having some increasing SOB and HESTER over the last several days. Has a productive sounding cough with unknown color of phlegm. No hemophysis noted. Patient does have COPD. Has been having some increase wheezing at times. Patient nicolás any chest pain or pressure other then related to arthritis. Onset: other Duration: continues in ED Context: OA pain Severity: moderate Exacerbated By: change in position Associated Symptoms: productive cough. denies: chills, fever, sweating, chest pain - ROS CONST: no problems GI/: denies: abdominal pain, problems urinating, vomiting, nausea MS/SKIN/LYMPH: neck pain, back pain, other (shoulder pain) - PAST HX Lung Disease: COPD Surgeries/Procedures: appendectomy, other (skin cancer remove) Other History: other (COPD, OA) Immunizations: pneumovax (? pnuemonia 23). denies: influenza (not this year) Allergies/Adverse Reactions: Allergies Allergy/AdvReac Type Severity Reaction Status Date / Time dextromethorphan HBr Allergy Verified 11/28/16 12:32 [From NyQuil] doxylamine succinate Allergy Verified 11/28/16 12:32 [From NyQuil] pseudoephedrine HCl Allergy Verified 11/28/16 12:32 [From NyQuil] hydrocodone AdvReac Mental Verified 11/28/16 12:32 Status Changes Home Medications: Ambulatory Orders Medication Instructions Recorded Arformoterol Tartrate [Brovana] 15 mcg IH BID 07/25/14 Budesonide [Pulmicort] 1 unit INH BID 07/25/14 Calcium Carb 600Mg/Vit D-3 400 1 each PO DAILY 12/24/16 [Caltrate with Vit D-3] Docusate Sodium [Stool Softener] 100 mg PO DAILY 12/24/16 Ferrous Sulfate [Feosol] 325 mg PO DAILY 12/24/16 Ipratropium/Albuterol Sulfate 3 ml NEB BID 12/24/16 [Duoneb] Tramadol HCl [Ultram] 50 mg PO Q8H PRN 12/24/16 - SOCIAL HX Smoking History: chew (1/4-1/2 pouch a day) Alcohol Use: none Drug Use: none - FAMILY HX Family History: none - VITAL SIGNS Vital Signs: Vital Signs Temp Pulse Resp BP Pulse Ox 126/65 11/28/16 13:17 - REVIEWED ASSESSMENTS Nursing Assessment Reviewed: Yes Vitals Reviewed: Yes Dyspnea Physical Exam - EXAM General Appearance: alert, mild distress EENT: eye inspection normal. No: ENT inspection normal (dry mucosal membrane) Neck: nml inspection. No: lymphadenopathy Respiratory: no resp. distress, speaks full sentences, wheezes (mild bilateral with forced expiration), rhonchi (course bilateral). No: stridor CVS: reg. rate & rhythm, no murmur, no gallop Abdomen: non-tender, no organomegaly, no distention, no ascites Skin: color nml Extremities: tenderness (over the shoulders, pain with movement to the shoulder with contractions, decrease ROM; Pain with movement of the hips and knees. ) Neuro/Psych: oriented x3, CN's nml as tested, mood/affect nml Discharge Clincal Impression: LLL pneumonia Qualifiers: Pneumonia type: due to unspecified organism Qualified Code(s): J18.1 - Lobar pneumonia, unspecified organism Condition: Stable Disposition: ADMITTED INPATIENT Decision to Admit: NO Date of Decison to Admit: 12/24/16 Decision Time: 12:30
[2016-12-24] MEDS ORDERED: KETOROLAC TROMETHAMINE 30 MG/1ML VIAL IVP ONE (11:31)
[2016-12-24 11:56] LABS: eGFR (African) > 60; eGFR (Non-African) > 60
[2016-12-24 12:03] LABS: MEAN CORPUSCULAR HEMOGLOBIN 27.8 pg (28.0-34.0)
[2016-12-24] MEDS ORDERED: oxyCODONE/ACETAMINOPHEN 5/325 TABLET PO PRN (12:45)
--- NOTE | 2016-12-24 14:21 | Diagnostic Imaging Report ---
SANDRA RUCKER [facility] [address] [facility].[address] [address] Report Submission Date: Dec 24, 2016 12:02:36 PM CDT Patient Study Name: CORY BASILIO Date: Dec 24, 2016 11:40:01 AM CDT Modality Type: CR Gender: M Description: CHEST : [birth year] Institution: [facility] Physician: SANDRA RUKCER Examination: PA and lateral chest. History: Evaluate lung bishop. Comparison exam: 28 August 2016 Findings: PA lateral chest demonstrate a normal cardiac silhouette. Tortuosity of thoracic aorta with vascular calcifications involving the aortic arch. New consolidative process involving the left lung base. Flattening of the diaphragm and lateral view. Chronic interstitial changes. Faint right upper lung density: present on prior study. Osseous structures demonstrate degenerative changes Impression: Acute left base infiltrate. Follows warranted to document resolution. Right upper lung faint density - correlation with exams older than August 2016 recommended to confirm long term care administrator stability (these older exams are unavailable for direct review at the present time). If increasing in size, recommend obtaining CT chest to further evaluate. Electronically signed on Dec 24, 2016 12:02:36 PM CDT by: Edgard FROST
[2016-12-24 14:25] VITALS: BMI 18.8
[2016-12-24] MEDS: IPRATROPIUM/ALBUTEROL SULFATE 3 ML AMPUL.NEB NEB SCH ×3 (14:30→22:10)
[2016-12-24] MEDS: FERROUS SULFATE 325 MG TABLET PO SCH (14:43)
[2016-12-24] MEDS: ENOXAPARIN SODIUM 30 MG/0.3 ML DISP.SYRIN SQ SCH (14:43)
[2016-12-24] MEDS ORDERED: cefTRIAXone SODIUM 1 GM VIAL ONE (15:30)
[2016-12-24] MEDS ORDERED: 0.9 % SODIUM CHLORIDE 50 ML IV ONE (15:30)
[2016-12-24] MEDS ORDERED: 0.9 % SODIUM CHLORIDE 250 ML IV ONE (15:36)
[2016-12-24] MEDS ORDERED: AZITHROMYCIN 500 MG VIAL IV ONE (15:36)
[2016-12-24] MEDS: cefTRIAXone SODIUM 1 GM in 0.9 % SODIUM CHLORIDE 50 ML IV SCH (16:06)
--- NOTE | 2016-12-24 16:53 | History and Physical Report ---
History of Present Illnes - History of Present Illness Reason for Visit: Pneumonia History of Present Illness: Catracho is an 86 year old male that presented to the ER for cough, increased shortness of breath, and body aches. He was found to have an infiltrate on chest xray and a 25,000 WBC. He notes he started feeling bad yesterday. He states he has had a worsening cough that is usually nonproductive. He states he could not sleep last night due to the cough. He notes a history of COPD. He is not on O2 at home but does have inhalers that he uses regularly. He states he believes he had a fever this morning but did not check his temperature. He notes he started having some body aches 2 days ago but thought it was arthritis acting up due to the changes in weather. He states he has not had the pneumonia vaccines and has not had a flu shot this year either. He states he is unsure if he would like get either of them. He notes he is no longer a smoker but does use chewing tobacco. He notes a mild runny nose and states he has been very tired but denies any other concerns at the time of interview. - Past Medical History Cardiac: HTN, Hyperlipidemia Pulmonary: COPD Heme/Onc: Cancer (prostate) Musculoskeletal: Osteoarthritis (Shoulders, Knees and hips ) - Past Surgical History Past Surgical History: Appendectomy, Other (Hemorrhoidectomy, vasectomy) - Past Social History Smoke: # pack years (50) Alcohol: None Drugs: None Lives: With Family Domestic Violence: Negative - Health Maintenance Health Maintenance: denies: Cholesterol, Influenza Vaccine, Pneumococcal Vaccine Influenza Vaccine: No Pneumonia Vaccine: No (Patient states he is unsure if he would like to get the pneumonia vaccine) Resuscitation Status: Resusciation Status Resuscitation Status Do Not Resuscitate Review of Systems - Review of Systems Constitutional: Fever (this morning ) Eyes: negative: pain, vision change ENT: Nose Discharge. negative: Ear Pain, Nose Pain, Throat Pain Respiratory: Cough, Dry, Shortness of Breath, Wheezing (improved since this monrning ) Cardiovascular: negative: Chest Pain Gastrointestinal: Constipation (history of ). negative: Nausea, Abdominal Pain , Diarrhea Genitourinary: negative: Dysuria Musculoskeletal: Shoulder Pain, Leg Pain (knees and hips) Skin: negative: Rash Neurological: negative: Change in Speech - Medications/Allergies Allergies/Adverse Reactions: Allergies Allergy/AdvReac Type Severity Reaction Status Date / Time dextromethorphan HBr Allergy Verified 11/28/16 12:32 [From NyQuil] doxylamine succinate Allergy Verified 11/28/16 12:32 [From NyQuil] pseudoephedrine HCl Allergy Verified 11/28/16 12:32 [From NyQuil] hydrocodone AdvReac Mental Verified 11/28/16 12:32 Status Changes Home Medications: Home Medications Calcium Carb 600Mg/Vit D-3 400 [Caltrate with Vit D-3] 1 each PO DAILY 12/24/16 Docusate Sodium [Stool Softener] 100 mg PO DAILY 12/24/16 Ferrous Sulfate [Feosol] 325 mg PO DAILY 12/24/16 Ipratropium/Albuterol Sulfate [Duoneb] 3 ml NEB BID 12/24/16 Tramadol HCl [Ultram] 50 mg PO Q8H PRN 12/24/16 Current Inpatient Medications: Current Inpatient Medications Albuterol/Ipratropium (Duoneb) 3 ml NEB QID COUNT INCLUDES THE [facility] Last Admin: 12/24/16 14:30 Dose: 3 ml Arformoterol Tartrate (Brovana) 15 mcg IH BID COUNT INCLUDES THE [facility] Aspirin (Ecotrin) 81 mg PO DAILY COUNT INCLUDES THE [facility] Budesonide (Pulmicort) mg NEB BID COUNT INCLUDES THE [facility] Calcium/Vitamin D (Caltrate With Vit D-3) 1 each PO DAILY COUNT INCLUDES THE [facility] Docusate Sodium (Colace) 100 mg PO DAILY COUNT INCLUDES THE [facility] Enoxaparin Sodium (Lovenox) 30 mg SQ QD COUNT INCLUDES THE [facility] Stop: 01/06/17 13:01 Last Admin: 12/24/16 14:43 Dose: 30 mg Ferrous Sulfate (Feosol) 325 mg PO 1100 COUNT INCLUDES THE [facility] Last Admin: 12/24/16 14:43 Dose: 325 mg Azithromycin 500 mg/ Sodium (Chloride) 250 mls @ 125 mls/hr IV Q24H COUNT INCLUDES THE [facility] Stop: 12/29/16 12:59 Ceftriaxone Sodium 1 gm/ (Sodium Chloride) 50 mls @ 100 mls/hr IV QD COUNT INCLUDES THE [facility] Last Admin: 12/24/16 16:06 Dose: 100 mls/hr Miscellaneous (Celecoxib [Celecoxib]) 200 mg PO DAILY COUNT INCLUDES THE [facility] Oxycodone/Acetaminophen (Percocet 5-325 Mg Tablet) 1 each PO QID PRN PRN Reason: PAIN Potassium Chloride (Klor-Con M20) 20 meq PO DAILY COUNT INCLUDES THE [facility] Sodium Chloride (Normal Saline Flush) 3 ml IV BID DANISH Exam - Exam Vital Signs: Vital Signs (72 hours) 12/24/16 12/24/16 12/24/16 12:35 12:51 14:00 Temperature 97.2 F L 97.4 F L Pulse Rate [ 88 57 L 64 Pulse ox] Respiratory 20 19 20 Rate Blood Pressure 90/50 [Left Arm] Blood Pressure 151/62 132/55 [R ARM] O2 Sat by Pulse 96 100 100 Oximetry General: Alert, Oriented to Person, Oriented to Place, Cooperative, Thin HEENT: Atraumatic, EOMI. No: Pharyngeal Erythema, Tonsillar Exudate Neck: Normal Range of Motion. No: Rigidity Lungs: Speaks full Sentences, Wheezes, Decreased Air Movement (throughout). No : Respiratory Distress, Accessory Muscle Use Cardiovascular: Regular rate. No: Murmur Abdomen: Normal bowel sounds, Soft, No tenderness Integumentary: Normal, Dry, Decreased Turgor Extremities: No edema, No tenderness/swelling Neurological: Normal speech, Generalized Weakness Psych/Mental Status: Mental status NL - Laboratory Results Laboratory Results: Laboratory Results - last 24 hr 12/24/16 12/24/16 11:25 11:25 WBC 25.20 H RBC 4.32 Hgb 12.0 Hct 39.3 MCV 91.0 MCH 27.8 L MCHC 30.6 RDW 15.8 H Plt Count 243 Sodium 136 L Potassium 3.6 Chloride 101 Carbon Dioxide 23 BUN 22 H Creatinine 1.20 Estimated Creat Clear 32 Est GFR ( Amer) > 60 Est GFR (Non-Af Amer) > 60 Glucose 131 H Calcium 9.3 Total Bilirubin 0.4 AST 33 ALT 21 Alkaline Phosphatase 61 Total Protein 7.3 Albumin 3.8 Assessment/Plan - Assessment/Plan (1) LLL pneumonia Status: Acute Current Visit: Yes Qualifiers: Pneumonia type: due to unspecified organism Qualified Code(s): J18.1 - Lobar pneumonia, unspecified organism Assessment: CXR shows left lower lobe infiltrate. WBC was found to be 25,000. Patient complains of a cough and wheezing and subjective fever earlier today. Plan: Antibiotics (Rocephin, and Azithromycin) started. Recheck labs in the morning. (2) COPD (chronic obstructive pulmonary disease) Status: Acute Current Visit: Yes Assessment: Patient was found to have mild diffuse wheezing on exam. He is complaining of shortness of breath worse than usual and increased wheezing. He states he has been using his inhalers at home. Plan: Continue home maintenance inhaler. Add nebulizer treatments as ordered. O2 at 2L will be titrated based on patient's condition. (3) HTN (hypertension) Status: Acute Current Visit: Yes Assessment: Blood pressure stable on admission. Plan: Will continue home doses of medications. Monitor BP during stay. VTE Assessment - RISK FACTOR SCORE VTE RISK FACTOR SCORES: AGE OVER 60 YEARS, ACUTE INFECTION OTHER THEN SEPSIS - RISK VTE MODERATE RISK: SCORE OF 2 (RISK PROXIMAL DVT 2-4%) PROPHYAXIS NEEDED (on Lovenox.)
[2016-12-24] MEDS: AZITHROMYCIN 500 MG in 0.9 % SODIUM CHLORIDE 250 ML IV SCH (17:21)
[2016-12-24] MEDS ORDERED: ALBUTEROL SULFATE 2.5 MG/0.5 ML AMPUL.NEB NEB SCH (18:00)
[2016-12-24] MEDS ORDERED: ALBUTEROL SULFATE 2.5 MG/3 ML AMPUL.NEB NEB ONE (19:16)
[2016-12-24] MEDS ORDERED: BUDESONIDE 0.5MG/2ML AMPUL.NEB NEB SCH (21:00)
[2016-12-24] MEDS: SALINE FLUSH 10 ML DISP.SYRIN IV SCH (21:40)
[2016-12-25] MEDS ORDERED: CELECOXIB 100 MG CAPSULE ONE ×2 (05:37→22:30)
[2016-12-25] MEDS ORDERED: CALCIUM CARB 500/VIT D 200 1 EACH TABLET ONE ×2 (05:37→22:30)
[2016-12-25] MEDS: ARFORMOTEROL TARTRATE 15 MCG/2 ML AMPUL.NEB IH SCH ×3 (06:14→22:02)
[2016-12-25 07:12] LABS: eGFR (African) > 60; eGFR (Non-African) 55
[2016-12-25 08:15] LABS: MONOCYTES % 12 % (0-11); SEGMENTED NEUTROPHILS % 58 % (39-79)
[2016-12-25 08:16] LABS: ANISOCYTOSIS 1+ (NEGATIVE); OVALOCYTES 1+ (NEGATIVE); TOXIC GRANULATION PRESENT; TOXIC VACUOLATION PRESENT
[2016-12-25] MEDS: POTASSIUM CHLORIDE 20 MEQ TABLET.ER PO SCH (08:59)
[2016-12-25] MEDS: ASPIRIN EC 81 MG TABLET.DR PO SCH (08:59)
[2016-12-25] MEDS: DOCUSATE SODIUM 100 MG CAPSULE PO SCH (08:59)
[2016-12-25] MEDS: SALINE FLUSH 10 ML DISP.SYRIN IV SCH ×2 (09:00→22:02)
[2016-12-25] MEDS: CELECOXIB 200 MG PO SCH (09:04)
[2016-12-25] MEDS: CALCIUM CARB 600MG/VIT D-3 400 1 EACH TABLET PO SCH (09:04)
[2016-12-25] MEDS: IPRATROPIUM/ALBUTEROL SULFATE 3 ML AMPUL.NEB NEB SCH ×4 (09:08→22:01)
--- NOTE | 2016-12-25 09:30 | Inpatient Progress Note ---
Subjective - Required Recertification Statement I anticipate X number of days because-include discharge plan: 2+ - Review of Systems Events since last encounter: Catracho was started on Rocephin and Azithromycin on admission. His WBC is slightly lower today. Hgb is also lower today at 10.3 from 12.0 yesterday. He states he is feeling better and seems to have more energy. He states he feels like he is breathing better today. He denies any pain. General: Denies: Chills HEENT: Denies: Visual Changes, Ear Pain, Sore Throat Pulmonary: Cough Cardiovascular: Denies: Chest Pain Gastrointestinal: Denies: Nausea, Vomiting Genitourinary: Denies: Dysuria Musculoskeletal: Shoulder Pain (Bilateral - OA), Leg Pain (hips, knees - OA) Neurological: Denies: Change in Speech, Confusion Objective - Exam Vitals and I&O: Vital Signs Temp 98.2 F 12/25/16 05:55 Pulse 102 H 12/25/16 08:00 Resp 18 12/25/16 08:00 BP 114/57 12/25/16 05:55 Pulse Ox 90 L 12/25/16 05:55 Intake & Output 12/24/16 12/24/16 12/25/16 11:59 23:59 11:59 Intake Total 300 Balance 300 Weight 46.72 kg Intake: Oral 300 Other: Voiding Method Toilet Toilet # Voids 2 2 General: Alert, Oriented to Person, Oriented to Place, Cooperative, No acute distress, Thin HEENT: Atraumatic, EOMI, Mouth Mucous membr. moist/[place], Decreased Hearing Acuity (wears hearing aids) Neck: Supple Lungs: Speaks full Sentences, Wheezes (mild diffuse). No: Respiratory Distress , Accessory Muscle Use Abdomen: Normal bowel sounds, Soft, No tenderness Extremities: No clubbing, No cyanosis, No edema Skin: Normal, Dry Neurological: Normal gait, Normal speech, Generalized Weakness Psych/Mental Status: Mood NL - Results Results: Laboratory Results WBC 21.90 K/ul (4.00-12.00) H 12/25/16 06:15 RBC 3.68 M/ul (3.90-5.20) L 12/25/16 06:15 Hgb 10.3 g/dL (12.0-18.0) L 12/25/16 06:15 Hct 32.4 % (37.0-53.0) L 12/25/16 06:15 MCV 88.0 fl (80.0-100.0) 12/25/16 06:15 MCH 28.0 pg (28.0-34.0) 12/25/16 06:15 MCHC 31.8 g/dL (30.0-36.0) 12/25/16 06:15 RDW 16.0 % (11.3-14.3) H 12/25/16 06:15 Plt Count 170 K/mm3 (130-400) 12/25/16 06:15 Seg Neutrophils % 58 % (39-79) 12/25/16 06:15 Band Neutrophils % 28 % (0-12) H 12/25/16 06:15 Lymphocytes % 1 % (16-50) L 12/25/16 06:15 Monocytes % 12 % (0-11) H 12/25/16 06:15 Metamyelocytes % 1 % (0-0) H 12/25/16 06:15 Toxic Granulation Present 12/25/16 06:15 Toxic Vacuolation Present 12/25/16 06:15 Plt Morphology Comment Normal (NORMAL) 12/25/16 06:15 Anisocytosis 1+ (NEGATIVE) H 12/25/16 06:15 Ovalocytes 1+ (NEGATIVE) H 12/25/16 06:15 RBC Morph Comment Abnormal (NORMAL) H 12/25/16 06:15 Sodium 130 mmol/L (137-145) L 12/25/16 06:15 Potassium 4.2 mmol/L (3.5-5.1) 12/25/16 06:15 Chloride 100 mmol/L (98-107) 12/25/16 06:15 Carbon Dioxide 22 mmol/L (22-30) 12/25/16 06:15 BUN 28 mg/dL (9-20) H 12/25/16 06:15 Creatinine 1.30 mg/dL (0.66-1.25) H 12/25/16 06:15 Estimated Creat Clear 25 12/25/16 06:15 Est GFR ( Amer) > 60 (60-) 12/25/16 06:15 Est GFR (Non-Af Amer) 55 (60-) L 12/25/16 06:15 Glucose 90 mg/dL (74-106) 12/25/16 06:15 Calcium 8.5 mg/dL (8.4-10.2) 12/25/16 06:15 Total Bilirubin 0.2 mg/dL (0.2-1.3) 12/25/16 06:15 AST 20 U/L (15-46) 12/25/16 06:15 ALT 23 U/L (13-69) 12/25/16 06:15 Alkaline Phosphatase 56 U/L (38-126) 12/25/16 06:15 Total Protein 5.8 g/dL (6.3-8.2) L 12/25/16 06:15 Albumin 2.8 g/dL (3.5-5.0) L 12/25/16 06:15 Assessment/Plan - Assessment/Plan (1) LLL pneumonia Status: Acute Current Visit: Yes Qualifiers: Pneumonia type: due to unspecified organism Qualified Code(s): J18.1 - Lobar pneumonia, unspecified organism (2) COPD (chronic obstructive pulmonary disease) Status: Acute Current Visit: Yes Assessment: White count slightly better today compared to admission. Patient is getting breathing treatments. He states he is breathing a little easier today. Plan: Continue breathing treatments. Titrate O2 per patient's condition. (3) HTN (hypertension) Status: Acute Current Visit: Yes (4) Anemia Status: Acute Current Visit: Yes Assessment: Hgb dropped to 10.3 from 12.0 yesterday. Patient denies any history of anemia. Plan: Will monitor H&H throughout stay. Will recheck cbc in the morning. (5) Dementia Status: Acute Current Visit: Yes
[2016-12-25] MEDS: FERROUS SULFATE 325 MG TABLET PO SCH (11:19)
[2016-12-25] MEDS ORDERED: 0.9 % SODIUM CHLORIDE 50 ML IV ONE (12:26)
[2016-12-25] MEDS ORDERED: cefTRIAXone SODIUM 1 GM VIAL ONE (12:26)
[2016-12-25] MEDS: cefTRIAXone SODIUM 1 GM in 0.9 % SODIUM CHLORIDE 50 ML IV SCH (13:13)
[2016-12-25] MEDS ORDERED: 0.9 % SODIUM CHLORIDE 250 ML IV ONE (13:14)
[2016-12-25] MEDS ORDERED: AZITHROMYCIN 500 MG VIAL IV ONE (13:14)
[2016-12-25] MEDS: AZITHROMYCIN 500 MG in 0.9 % SODIUM CHLORIDE 250 ML IV SCH (13:26)
[2016-12-25] MEDS: ENOXAPARIN SODIUM 30 MG/0.3 ML DISP.SYRIN SQ SCH (13:29)
[2016-12-26] MEDS: CELECOXIB 200 MG PO SCH (08:30)
[2016-12-26] MEDS: DOCUSATE SODIUM 100 MG CAPSULE PO SCH (08:30)
[2016-12-26] MEDS: ASPIRIN EC 81 MG TABLET.DR PO SCH (08:30)
[2016-12-26] MEDS: CALCIUM CARB 600MG/VIT D-3 400 1 EACH TABLET PO SCH (08:30)
[2016-12-26] MEDS: POTASSIUM CHLORIDE 20 MEQ TABLET.ER PO SCH (08:31)
[2016-12-26] MEDS: SALINE FLUSH 10 ML DISP.SYRIN IV SCH (08:31)
[2016-12-26] MEDS: IPRATROPIUM/ALBUTEROL SULFATE 3 ML AMPUL.NEB NEB SCH ×2 (08:39→12:46)
[2016-12-26] MEDS: ARFORMOTEROL TARTRATE 15 MCG/2 ML AMPUL.NEB IH SCH (08:42)
[2016-12-26] MEDS ORDERED: CELECOXIB 200 MG PO SCH (09:00)
[2016-12-26] MEDS ORDERED: INFLUENZA VACCINE/PF 60 MCG/0.5 ML DISP.SYRIN IM ONE (13:20)
[2016-12-26] MEDS: FERROUS SULFATE 325 MG TABLET PO SCH (13:38)
[2016-12-26 14:01] VITALS: BP 100/37
[2016-12-26] MEDS ORDERED: INFLUENZA VACCINE 60 MCG/0.5 ML IM ONE (14:02)
[2016-12-26] MEDS: ENOXAPARIN SODIUM 30 MG/0.3 ML DISP.SYRIN SQ SCH (14:20)
[2016-12-26] MEDS: cefTRIAXone SODIUM 1 GM in 0.9 % SODIUM CHLORIDE 50 ML IV SCH (14:21)
[2016-12-26] MEDS: AZITHROMYCIN 500 MG in 0.9 % SODIUM CHLORIDE 250 ML IV SCH (14:22)
--- NOTE | 2016-12-26 14:31 | Discharge Summary ---
DATE OF ADMISSION: December 24, 2016 DATE OF DISCHARGE: December 26, 2016 DIAGNOSES ON THIS HOSPITALIZATION: 1. Pneumonia. 2. Left lower lobe pneumonia. 3. Chronic obstructive pulmonary disease (COPD). 4. Ulcer on dorsum of left great toe. 5. Hypertension. SUMMARIZATION OF ADMISSION HISTORY AND PHYSICAL: This is an 78-year-old male who presented to the emergency room with a cough, increased shortness of breath, and body aches. He was found to have an infiltrate on a chest x-ray and a white count of 25,000. He had been feeling bad for only about a day or so. He initially was a little bit hypoxic. He was admitted with a white count of 25,000 for a diagnosis of left lower lobe pneumonia. HOSPITAL COURSE: He was started on IV Rocephin and azithromycin. He actually improved quite a bit. He was back down to room air with a pulse oximetry of 97% on room air. He was discharged home with continuation of all of his home medications as prior to his hospitalization with the addition of cefuroxime 250 mg p.o. b.i.d. x7 days and then also a Z-Hank which will be given orally also. DISCHARGE INSTRUCTIONS: I will see him back in 1 week for follow up in the office. MARGOT
== END 2016-12-26 14:15 | disposition home or self-care (01) | DRG 195 ==
LOC: ED 10:47 → SOUTH 12:17
PROVIDERS: ADMIT Physician Assistant; ATTEND Family Medicine
DX: J18.1 Lobar pneumonia, unspecified organism (principal); J44.9 Chronic obstructive pulmonary disease, unspecified; I10 Essential (primary) hypertension
CPT/HCPCS: 36415; 71020; 80053; 85025; 87040; 90656; 94640; 94760; 97116; 97161; 97165; 97535; A9270; J0456; J0696; J1650; J1885; J7050; J7626; 99222; 99232; 99238; 99283; 99284; S1016

== ENCOUNTER 2016-12-26 18:45 | Emergency (ER) | payer MEDICARE, OTHER ==
--- NOTE | 2016-12-26 19:20 | ED Physician Documentation ---
Upper Respiratory Symptoms - HISTORIAN Historian: patient, child - HPI Stated Complaint: SOA Chief Complaint: Cough/ Upper Respiratory Additional Information: [facility] severe weakness but will not stay in bed gets up to watch tv and take care dog. spo2=95 rm air-on azithromycin starts cefuroxime in am Onset: days ago (5) Duration: intermittent episodes Context: recent foreign travel. denies: insect bite(s) Severity: moderate Associated Symptoms: other (cough but us not productive). denies: fever, chills , sweating, earache, runny nose, sinus pain Further Comments: yes (pt is alert cheerful afebrile vs = satis) - ROS CONST/EYES: weakness CVS/RESP: shortness of breath (w/exertin) GI/: denies: abdominal pain NEURO/PSYCH: confusion (very marked=-son says pt is convinced he has been to [place] today--this confusion is not new). denies: fainting, dizziness - PAST HX Lung Disease: asthma, COPD, other (dementiahtn anemia lll pneumonia) Allergies/Adverse Reactions: Allergies Allergy/AdvReac Type Severity Reaction Status Date / Time dextromethorphan HBr Allergy Verified 12/26/16 18:55 [From NyQuil] doxylamine succinate Allergy Verified 12/26/16 18:55 [From NyQuil] pseudoephedrine HCl Allergy Verified 12/26/16 18:55 [From NyQuil] hydrocodone AdvReac Mental Verified 12/26/16 18:55 Status Changes watermelon Allergy Severe seizures Uncoded 12/26/16 18:55 Home Medications: Ambulatory Orders Medication Instructions Recorded Arformoterol Tartrate [Brovana] 15 mcg IH BID 07/25/14 Budesonide [Pulmicort] 1 unit INH BID 07/25/14 Calcium Carb 600Mg/Vit D-3 400 1 each PO DAILY 12/24/16 [Caltrate with Vit D-3] Docusate Sodium [Stool Softener] 100 mg PO DAILY 12/24/16 Ferrous Sulfate [Feosol] 325 mg PO DAILY 12/24/16 Ipratropium/Albuterol Sulfate 3 ml NEB BID 12/24/16 [Duoneb] Tramadol HCl [Ultram] 50 mg PO Q8H PRN 12/24/16 - SOCIAL HX Smoking History: non-smoker Alcohol Use: none Drug Use: none - FAMILY HX Family History: no significant history - VITAL SIGNS Vital Signs: Vital Signs Temp Pulse Resp BP Pulse Ox 98.6 F 102 H 20 150/62 95 12/26/16 18:45 12/26/16 18:45 12/26/16 18:45 12/26/16 18:45 12/26/16 18:45 - REVIEWED ASSESSMENTS Nursing Assessment Reviewed: Yes Vitals Reviewed: Yes ED Results Lab/Radiology - Radiology Radiology Impressions: lll infiltrate persists - Orders Orders: ED Orders Category Date Time Status CHEST 2 VIEW [CHEST P.A.&LAT 2 VIEWS] [RAD] Stat Exams 12/26/16 Taken cefTRIAXone SODIUM [Rocephin] Med 12/26/16 20:25 Once 1 gm IM NOW ONE Upper Respiratory Symptoms - EXAM General Appearance: mild distress EENT: eyes nml inspection. No: pharyngeal erythema, muffled voice Neck: normal inspection, thyroid normal Respiratory: no resp. distress, breath sounds nml Abdomen: non-tender, no distention CVS: reg rate & rhythm, heart sounds normal Skin: color nml, no rash, warm,dry. No: cyanosis, diaphoresis Extremities: non-tender, normal range of motion, no evidence of injury, no edema Neuro/Psych: oriented x3, mood/affect nml, other (pt alert cheerful talkative hard of hearing smiles etc) Discharge Clincal Impression: lt low lobe pneumonia Referrals: Diego Ross MD [Primary Care Provider] - 2 Days Comments: start cefuroxime as directed - f/u w/pcp as directed--rt ed if unable find pcp Condition: Good Disposition: 01 HOME, SELF-CARE Decision to Admit: NO Decision Time: 20:33
[2016-12-26] MEDS ORDERED: cefTRIAXone SODIUM 1 GM VIAL IM ONE (20:25)
[2016-12-26] MEDS ORDERED: Lidocaine 1% 5ml(IM or SUTURE)(PAIN CLINIC) ONE (20:31)
[2016-12-26] MEDS ORDERED: Lidocaine 1% 20ml (SOUTH OMNI) IM ONE (20:34)
[2016-12-26 20:59] VITALS: BP 128/77
--- NOTE | 2016-12-27 05:34 | Diagnostic Imaging Report ---
ENEDELIA PATRICK [facility] [address] [id number] Report Submission Date: Dec 26, 2016 8:49:29 PM CDT Patient Study Name: CORY BASILIO Date: Dec 26, 2016 8:12:03 PM CDT Modality Type: CR Gender: M Description: CHEST : [birth year] Institution: [facility] Physician: ENEDELIA PATRICK Examination: PA and lateral chest. History: Evaluate lung bishop. Comparison exam: 24 December 2016 Findings: PA lateral chest demonstrate a normal cardiac silhouette. Tortuous aorta with vascular calcifications involving the aortic arch. Parenchymal infiltrate at the left lung base. Small infiltrate involving the right lung base medially. Flattening of the diaphragms with blunting of the posterior sulci. Osseous structures are appropriate for age. Impression: Bibasilar infiltrates with likely posterior effusion. Electronically signed on Dec 26, 2016 8:49:29 PM CDT by: Edgard FROST
== END 2016-12-26 20:50 | disposition home or self-care (01) ==
LOC: ED 18:45
DX: J18.9 Pneumonia, unspecified organism (principal)
CPT/HCPCS: 71020; J0696; 96372; 99283

== ENCOUNTER 2017-01-01 14:45 | Emergency (ER) | payer MEDICARE, OTHER ==
[2017-01-01 15:14] VITALS: BP 113/67
--- NOTE | 2017-01-01 15:17 | ED Physician Documentation ---
Upper Respiratory Symptoms - HISTORIAN Historian: patient, child - HPI Stated Complaint: cough, congestion Chief Complaint: Cough/ Upper Respiratory Additional Information: pt recendtly tx for pneumonia still on zithromax and lcefuroxime-has developed new more intense cough non prod. pt is on duoneb qid. b/k e/s = ok. Onset: days ago (several plus home from hosp. better then exaberation - still on antibiotics so probably viral) Duration: intermittent episodes Context: denies: recent foreign travel, insect bite(s), recent chemotherapy Severity: mild, moderate Associated Symptoms: shortness of breath. denies: fever, chills, sweating, runny nose, sinus drainage, bloody cough, productive cough - ROS CONST/EYES: denies: weakness CVS/RESP: none, shortness of breath (some w/ persistent cough) LYMPH: denies: leg swelling, swollen glands GI/: none NEURO/PSYCH: confusion (dementia but happy and cooperative). denies: fainting, dizziness MS/SKIN: denies: joint pain, muscle aches, rash - PAST HX Lung Disease: COPD (recentpneumonia htn dementia djd prostate cancer gi cancer-in remission skin cancer) PE Risk Factors: hypertension Other History: cancer chemo (in past) Immunizations: influenza Allergies/Adverse Reactions: Allergies Allergy/AdvReac Type Severity Reaction Status Date / Time dextromethorphan HBr Allergy Verified 01/01/17 15:05 [From NyQuil] doxylamine succinate Allergy Verified 01/01/17 15:05 [From NyQuil] pseudoephedrine HCl Allergy Verified 01/01/17 15:05 [From NyQuil] hydrocodone AdvReac Mental Verified 01/01/17 15:05 Status Changes watermelon Allergy Severe seizures Uncoded 01/01/17 15:05 Home Medications: Ambulatory Orders Medication Instructions Recorded Arformoterol Tartrate [Brovana] 15 mcg IH BID 07/25/14 Budesonide [Pulmicort] 1 unit INH BID 07/25/14 Calcium Carb 600Mg/Vit D-3 400 1 each PO DAILY 12/24/16 [Caltrate with Vit D-3] Docusate Sodium [Stool Softener] 100 mg PO DAILY 12/24/16 Ferrous Sulfate [Feosol] 325 mg PO DAILY 12/24/16 Ipratropium/Albuterol Sulfate 3 ml NEB BID 12/24/16 [Duoneb] Tramadol HCl [Ultram] 50 mg PO Q8H PRN 12/24/16 - SOCIAL HX Smoking History: non-smoker, other (never cigarettes---smoked pipe and cigars) - FAMILY HX Family History: no significant history - VITAL SIGNS Vital Signs: Vital Signs Temp Pulse Resp BP Pulse Ox 98.5 F 92 H 14 113/67 94 01/01/17 15:07 01/01/17 15:07 01/01/17 15:07 01/01/17 15:07 01/01/17 15:07 - REVIEWED ASSESSMENTS Nursing Assessment Reviewed: Yes Vitals Reviewed: Yes ED Results Lab/Radiology - Orders Orders: ED Orders Category Date Time Status methylPREDNISolone ACETATE [Depo-Medrol] Med 01/01/17 15:13 Once 80 mg IM NOW ONE Upper Respiratory Symptoms - EXAM General Appearance: mild distress EENT: eyes nml inspection Neck: normal inspection Respiratory: wheezes (slight), rhonchi (slight) CVS: reg rate & rhythm, heart sounds normal Skin: color nml, no rash, warm,dry. No: cyanosis, diaphoresis, pallor Extremities: non-tender, normal range of motion Neuro/Psych: oriented x3, mood/affect nml Discharge Clincal Impression: viral resp infection - hx copd, recendt pneumonia - stil on antiiotics Referrals: Diego Ross MD [Primary Care Provider] - 2 Days Comments: pt/family instructed on use neb-he is on duoneb bid but no deep breathing when uses it. family will sit w/him and instruct deep breath hold long time then exhale then repeat till meds used Condition: Good Disposition: 01 HOME, SELF-CARE Decision to Admit: NO Decision Time: 15:26
[2017-01-01] MEDS: methylPREDNISolone ACETATE 80 MG/ML VIAL IM ONE (15:21)
== END 2017-01-01 15:32 | disposition home or self-care (01) ==
LOC: ED 14:45
DX: J98.8 Other specified respiratory disorders (principal)
CPT/HCPCS: 96372; 99283; J1040

== ENCOUNTER 2017-02-18 10:24 | Emergency (ER) | payer MEDICARE, OTHER ==
[2017-02-18 10:47] VITALS: BP 133/77
--- NOTE | 2017-02-18 11:09 | ED Physician Documentation ---
General Adult - HPI Stated Complaint: can't walk Chief Complaint: General Adult Additional Information: 86-year-old white male comes in stated that he is been having some tingling not been feeling all over his body that develop earlier this morning. Patient family stated he awoken seem to be doing well until he had a sudden onset of this tingling sensation. Patient states that with that he was not able to walk quite as well. Patient did not have any falls. Patient denies any localized weakness. Patient is not had any difficulties with swallowing. Patient denied any slurred speech. Patient denies any specific pain anywhere other than is baseline arthritis. Patient states his arthritis does seem to be worse today due to the weather change. Further Comments: no - ROS CONST: weakness. denies: fever, sweating, weight loss - PAST HX Past History: asthma, COPD, other (pericarditis, pedal edema, generalized OA, prostate cancer) Surgeries/Procedures: other (skin cancer, appendectomy) Allergies/Adverse Reactions: Allergies Allergy/AdvReac Type Severity Reaction Status Date / Time dextromethorphan HBr Allergy Verified 02/18/17 10:47 [From NyQuil] doxylamine succinate Allergy Verified 02/18/17 10:47 [From NyQuil] pseudoephedrine HCl Allergy Verified 02/18/17 10:47 [From NyQuil] hydrocodone AdvReac Mental Verified 02/18/17 10:47 Status Changes watermelon Allergy Severe seizures Uncoded 02/18/17 10:47 Home Medications: Ambulatory Orders Medication Instructions Recorded Arformoterol Tartrate [Brovana] 15 mcg IH BID 07/25/14 Budesonide [Pulmicort] 1 unit INH BID 07/25/14 Calcium Carb 600Mg/Vit D-3 400 1 each PO DAILY 12/24/16 [Caltrate with Vit D-3] Docusate Sodium [Stool Softener] 100 mg PO DAILY 12/24/16 Ferrous Sulfate [Feosol] 325 mg PO DAILY 12/24/16 - SOCIAL HX Smoking History: non-smoker, secondhand Alcohol Use: none Drug Use: none - FAMILY HX Family History: Yes (OA) - VITAL SIGNS Vital Signs: Vital Signs Temp Pulse Resp BP Pulse Ox 98.2 F 90 21 133/77 96 02/18/17 10:42 02/18/17 10:42 02/18/17 10:42 02/18/17 10:42 02/18/17 10:42 General Adult Physical Exam - PHYSICAL EXAM GENERAL APPEARANCE: mild distress EENT: ENT inspection normal, pharynx normal, other (decrease hearing acuity) NECK: normal inspection, thyroid normal, supple. No: lymphadenopathy, stiff neck RESPIRATORY: no resp distress, chest non-tender, breath sounds normal. No: wheezes, rales, rhonchi CVS: reg rate & rhythm, heart sounds normal, equal pulses, no murmur, no gallop ABDOMEN: soft, no organomegaly, normal bowel sounds, no abdominal bruit, no distension, non-tender SKIN: warm/dry, normal color, other (no rash noted) EXTREMITIES: non-tender, normal range of motion (for patient, decreased overall secondary to arthritis. ), no evidence of injury NEURO: oriented X3, CN's nml as tested, motor nml, sensation nml, mood/affect nml, cognition normal Discharge Clincal Impression: Generalized osteoarthritis Referrals: Diego Ross MD [Primary Care Provider] - 2 Days Additional Instructions: Continue with your current medications. Follow-up with Dr Ross in 1-2 weeks or sooner if needed. Return to the ED if needed. Condition: Stable Disposition: 01 HOME, SELF-CARE Decision to Admit: NO Date of Decison to Admit: 02/18/17 Decision Time: 12:00
[2017-02-18 11:45] LABS: BASOPHILS % 1.1 (0.0-1.5); EOSINOPHILS % 4.1 % (0.0-6.8); MEAN CORPUSCULAR HEMOGLOBIN 29.1 pg (28.0-34.0); MEAN CORPUSCULAR VOLUME 92.2 fl (80.0-100.0); MONOCYTES % 10.2 % (0.0-11.0); NEUTROPHILS # 2.8 # k/uL (1.4-7.7)
[2017-02-18 11:57] LABS: eGFR (African) > 60; eGFR (Non-African) > 60
[2017-02-18 21:20] LABS: APPEARANCE,URINE CLEAR (CLEAR); COLOR,URINE YELLOW (YELLOW); OCCULT BLOOD,URINE TRACE-INTACT (NEGATIVE); UROBILINOGEN URINE 0.2 Eu (0.2-1.0)
== END 2017-02-18 12:40 | disposition home or self-care (01) ==
LOC: ED 10:24
DX: M15.9 Polyosteoarthritis, unspecified (principal)
CPT/HCPCS: 80053; 81002; 85025; 99283

== ENCOUNTER 2017-03-01 13:30 | Emergency (ER) | payer MEDICARE, OTHER ==
[2017-03-01 13:41] VITALS: BP 144/82
--- NOTE | 2017-03-01 14:09 | ED Physician Documentation ---
General Adult - HISTORIAN Historian: other (grand-daughter; daughter) - HPI Stated Complaint: Constipation Chief Complaint: General Adult Further Comments: yes (86 year old male patient brought to the ER by his grand- daughter for complaints of no BM x 3 days. Patient could not see primary care provider today and came to ER.) - ROS CONST: no problems EYES/ENT: none CVS/RESP: none GI/: none. denies: abdominal pain, vomiting, nausea, diarrhea MS/SKIN/LYMPH: other (constipation) NEURO/PSYCH: denies: headache, fainting, dizziness, tingling, numbness, difficulty walking, difficulty with speech, anxiety, depression, other - PAST HX Past History: COPD, hypertension, other (chronic constipation) Other History: other (dementia) Allergies/Adverse Reactions: Allergies Allergy/AdvReac Type Severity Reaction Status Date / Time acetaminophen [From Grace] Allergy Verified 03/01/17 14:01 dextromethorphan HBr Allergy Verified 03/01/17 13:42 [From NyQuil] doxylamine succinate Allergy Verified 03/01/17 13:42 [From NyQuil] hydrocodone bitartrate Allergy Verified 03/01/17 14:01 [From Grace] pseudoephedrine HCl Allergy Verified 03/01/17 13:42 [From NyQuil] hydrocodone AdvReac Mental Verified 03/01/17 13:42 Status Changes watermelon Allergy Severe seizures Uncoded 03/01/17 13:42 Home Medications: Ambulatory Orders Medication Instructions Recorded Arformoterol Tartrate [Brovana] 15 mcg IH BID 07/25/14 Budesonide [Pulmicort] 1 unit INH BID 07/25/14 Calcium Carb 600Mg/Vit D-3 400 1 each PO DAILY 12/24/16 [Caltrate with Vit D-3] Docusate Sodium [Stool Softener] 100 mg PO DAILY 12/24/16 Ferrous Sulfate [Feosol] 325 mg PO DAILY 12/24/16 - SOCIAL HX Smoking History: chew - FAMILY HX Family History: No - VITAL SIGNS Vital Signs: Vital Signs Temp Pulse Resp BP Pulse Ox 99.0 F 108 H 17 144/82 98 03/01/17 13:37 03/01/17 13:37 03/01/17 13:37 03/01/17 13:37 03/01/17 13:37 - REVIEWED ASSESSMENTS Nursing Assessment Reviewed: Yes Vitals Reviewed: Yes Progress - Progress Progress: Extensive education on laxative, multiple options written down for family including milk of magnesia, dulcolax, warm prune juice and magnesium citrate. Education on use of ER for emergencies. Family verbalized understanding. ED Results Lab/Radiology - Radiology Radiology Impressions: Examination: Obstruction series History: Abdominal discomfort Findings: 3 views obtained of the abdomen. Scattered air filled loops of large and small bowel. Significant stool throughout the large bowel. No suspicious calcification projecting over the renal fossa or the lower pelvic region. Curvature and degenerative is involving the lumbar spine. Impression: Significant large bowel stool - constipation. Nonspecific bowel gas pattern. Extensive lumbar degenerative changes and curvature. Electronically signed on Mar 01, 2017 2:25:08 PM STOCK GRADER by: Edgard Gavin - Orders Orders: ED Orders Category Date Time Status ABDOMEN COMPLETE [RAD] Stat Exams 03/01/17 Ordered General Adult Physical Exam - PHYSICAL EXAM GENERAL APPEARANCE: [id number] N RESPIRATORY: no resp distress, chest non-tender, breath sounds normal CVS: reg rate & rhythm, heart sounds normal, equal pulses, no murmur, no gallop , PMI nml, no JVD, no friction rub, 24 ABDOMEN: soft, no organomegaly, normal bowel sounds, no abdominal bruit, no distension SKIN: warm/dry, pallor NEURO: oriented X3, motor nml, sensation nml, mood/affect nml Discharge Clincal Impression: Constipation Qualifiers: Constipation type: chronic idiopathic constipation Qualified Code(s): K59.04 - Chronic idiopathic constipation Referrals: Diego Ross MD [Primary Care Provider] - 2 Days Condition: Stable Disposition: 01 HOME, SELF-CARE Decision to Admit: NO Decision Time: 14:35
--- NOTE | 2017-03-01 14:35 | Diagnostic Imaging Report ---
JESSICA BROUSSARD (KIKE) - [facility] [address] [facility].[address] [address] Report Submission Date: Mar 01, 2017 2:25:08 PM NUTRITION SERVICES MANAGER Patient Study Name: CORY BASILIO Date: Mar 01, 2017 2:02:15 PM NUTRITION SERVICES MANAGER Modality Type: CR Gender: M Description: ABDOMEN : [birth year] Institution: [facility] [place] [facility] Physician: JESSICA BROUSSARD) - ER Examination: Obstruction series History: Abdominal discomfort Findings: 3 views obtained of the abdomen. Scattered air filled loops of large and small bowel. Significant stool throughout the large bowel. No suspicious calcification projecting over the renal fossa or the lower pelvic region. Curvature and degenerative is involving the lumbar spine. Impression: Significant large bowel stool - constipation. Nonspecific bowel gas pattern. Extensive lumbar degenerative changes and curvature. Electronically signed on Mar 01, 2017 2:25:08 PM NUTRITION SERVICES MANAGER by: Edgard FROST
== END 2017-03-01 14:30 | disposition home or self-care (01) ==
LOC: ED 13:30
DX: K59.04 Chronic idiopathic constipation (principal)
CPT/HCPCS: 74020; 99282

== ENCOUNTER 2017-03-30 21:33 | Emergency (ER) | payer MEDICARE, OTHER ==
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
--- NOTE | 2017-03-30 22:11 | Diagnostic Imaging Report ---
MG TAVERAS [facility] [address] [facility] [address] [place] [address]. [id number] Report Submission Date: Mar 30, 2017 10:10:01 PM HOGSHEAD HAND Patient Study Name: CORY BASILIO Date: Mar 30, 2017 9:53:27 PM HOGSHEAD HAND Modality Type: CR Gender: M Description: SHOULDER : [birth year] Institution: [facility] Physician: MG TAVERAS 3 views of the left shoulder Clinical history: PT FELL TODAY, LEFT SHOULDER PAIN AND BRUISING Findings: Examination left shoulder in multiple views with comparison to August demonstrates disruption of the shoulder joint with superior dislocation of the humerus and disruption of the acromioclavicular joint. There is resorption of the lateral clavicle with elevation of the clavicle relative to the acromion and widening of the coracoclavicular joint. There is no evidence of acute fracture and no significant change when compared to the prior study. Impression: 1. Disruption of the shoulder joint with superior dislocation of the humerus and acromioclavicular joint dislocation. 2. No significant change. Electronically signed on Mar 30, 2017 10:10:01 PM HOGSHEAD HAND by: Lyle FROST
[2017-03-30 23:05] VITALS: BP 116/63
== END 2017-03-30 22:45 | disposition home or self-care (01) ==
LOC: ED 21:33
DX: S49.82XA Other specified injuries of left shoulder and upper arm, initial encounter (principal); F03.90 Unspecified dementia, unspecified severity, without behavioral disturbance, psychotic disturbance, mood disturbance, and anxiety; J44.9 Chronic obstructive pulmonary disease, unspecified; I10 Essential (primary) hypertension; W19.XXXA Unspecified fall, initial encounter; Z91.81 History of falling; Y92.009 Unspecified place in unspecified non-institutional (private) residence as the place of occurrence of the external cause
CPT/HCPCS: 73030; 99283

== ENCOUNTER 2017-04-08 16:05 | Emergency (ER) | payer MEDICARE, OTHER ==
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
[2017-04-08 17:27] VITALS: BP 101/63
== END 2017-04-08 17:15 | disposition home or self-care (01) ==
LOC: ED 16:05
DX: M24.412 Recurrent dislocation, left shoulder (principal)
CPT/HCPCS: 99282; 99283

== ENCOUNTER 2017-09-08 09:16 | Emergency (ER) | payer MEDICARE, OTHER ==
--- NOTE | 2017-09-08 09:26 | ED Physician Documentation ---
General Adult - HISTORIAN Historian: patient - HPI Stated Complaint: head injury, scalp laceration Chief Complaint: General Adult Onset: minutes Timing: still present Severity: moderate Further Comments: yes (Pt is an 87 yo male with a significant scalp laceration to the R side of his head. Pt states that he was walking and his knees gave out. He fell striking his head against a table. Pt denies LOC. No neck pain. Family says that pt has DJD and very week knees and that his knees give out from time to time. Pt uses a wheelchair and walker. Pt c/o no focal deficits. He has pain from the scalp laceration, but no headache or other complaints. Tetanus is utd.) - ROS CONST: no problems EYES/ENT: none CVS/RESP: none GI/: none MS/SKIN/LYMPH: other (scalp laceration) - PAST HX Past History: other (heart dz, CHF, HLD) Allergies/Adverse Reactions: Allergies Allergy/AdvReac Type Severity Reaction Status Date / Time dextromethorphan HBr Allergy Verified 04/08/17 16:16 [From NyQuil] doxylamine succinate Allergy Verified 04/08/17 16:16 [From NyQuil] hydrocodone bitartrate Allergy Verified 04/08/17 16:16 [From [place]] pseudoephedrine HCl Allergy Verified 04/08/17 16:16 [From NyQuil] hydrocodone AdvReac Mental Verified 04/08/17 16:16 Status Changes watermelon Allergy Severe seizures Uncoded 04/08/17 16:16 Home Medications: Ambulatory Orders Medication Instructions Recorded Arformoterol Tartrate [Brovana] 15 mcg IH BID 07/25/14 Budesonide [Pulmicort] 1 unit INH BID 07/25/14 Calcium Carb 600Mg/Vit D-3 400 1 each PO DAILY 12/24/16 [Caltrate with Vit D-3] Docusate Sodium [Stool Softener] 100 mg PO DAILY 12/24/16 Ferrous Sulfate [Feosol] 325 mg PO DAILY 12/24/16 Cephalexin [Keflex] 500 mg PO Q12H #14 capsule 09/08/17 - SOCIAL HX Smoking History: chew - FAMILY HX Family History: No - VITAL SIGNS Vital Signs: Vital Signs Temp Pulse Resp BP Pulse Ox 101/63 04/08/17 17:15 - REVIEWED ASSESSMENTS Nursing Assessment Reviewed: Yes Vitals Reviewed: Yes Procedures Wound Location: head (scalp) Progress - Progress Progress: CT head: Stable advanced age related changes. No acute parenchymal process. No hemorrhage. Right frontal scalp hematoma. CT C-spine: Extensive multilevel degenerative changes. Anterior margin of the C1 vertebral body absent. Severe listhesis at C7/T1 which appears to be primarily degenerative in etiology though a traumatic component cannot be excluded. No anterior vertebral body compression deformity. If patient is experiencing neurologic symptoms, consider obtaining MRI to evaluate for any possible cord encroachment/impingement. Pt has no neurological sx and is without c/o neck pain. D/c instructions. Rx Keflex 500 mg. Take one every 12 hours for 7 days. 1st dose in ER. Follow up with primary provider in 7 days for staple removal. Return to ER if you have new symptoms or concerns. General Adult Physical Exam - PHYSICAL EXAM GENERAL APPEARANCE: mild distress EENT: eye inspection normal, ENT inspection normal, pharynx normal NECK: other (kyphosis, no pain in neck) RESPIRATORY: no resp distress, chest non-tender, breath sounds normal CVS: reg rate & rhythm, heart sounds normal ABDOMEN: soft, no organomegaly, normal bowel sounds BACK: normal inspection, no CVA tenderness SKIN: other (10 cm scalp laceration, R side of crown) EXTREMITIES: non-tender, other (baseline musculoskeletal status) NEURO: oriented X3 (baseline mental status), CN's nml as tested, motor nml, sensation nml Discharge Clincal Impression: Head trauma, scalp laceration Prescriptions: Cephalexin [Keflex] 500 mg PO Q12H #14 capsule Referrals: Diego Ross MD [Primary Care Provider] - Condition: Stable Disposition: 01 HOME, SELF-CARE Decision to Admit: NO Decision Time: 11:50
[2017-09-08] MEDS ORDERED: CEPHALEXIN 250 MG CAPSULE PO ONE (10:43)
[2017-09-08 11:07] LABS: BASOPHILS % 0.6 (0.0-1.5); MEAN CORPUSCULAR HEMOGLOBIN 31.5 pg (28.0-34.0); MEAN CORPUSCULAR VOLUME 98.4 fl (80.0-100.0); NEUTROPHILS # 3.1 # k/uL (1.4-7.7)
[2017-09-08 11:17] LABS: eGFR (African) > 60; eGFR (Non-African) > 60
[2017-09-08 11:54] VITALS: BP 116/52
--- NOTE | 2017-09-08 18:21 | Diagnostic Imaging Report ---
MG TAVERAS [facility] [address] [facility] [address] [place], [place]. [address] Report Submission Date: Sep 08, 2017 10:36:06 AM CDT Patient Study Name: CORY BASILIO Date: Sep 08, 2017 9:43:24 AM CDT Modality Type: CT\SR Gender: M Description: CT C-SPINE W/O CONTRAS : [birth year] Institution: [facility] Physician: MG TAVERAS Examination: CT cervical spine History: CT C-SPINE, FALL TODAY, HIT HEAD ON CABINET WITH SUPERIOR SCALP LACERATION (Hx) Comparison exams: None provided Technique: CT cervical spine axial imaging with sagittal and coronal reconstruction Findings: Sagittal reconstruction demonstrates multilevel degenerative spurring. Anterior margin of the C1 vertebral body absent. Significant listhesis C7 on T1. Extensive multilevel disc space narrowing. Atlantoaxial degenerative changes. Carotid vascular calcifications. Lung apical emphysematous changes. Axial imaging obtained from the skull base through T1 Extensive multilevel facet degenerative changes. Narrowing of the central canal and neural foramen at multiple levels. Impression: Extensive multilevel degenerative changes. Anterior margin of the C1 vertebral body absent. Severe listhesis at C7/T1 which appears to be primarily degenerative in etiology though a traumatic component cannot be excluded. No anterior vertebral body compression deformity. If patient is experiencing neurologic symptoms, consider obtaining MRI to evaluate for any possible cord encroachment/impingement. Electronically signed on Sep 08, 2017 10:36:06 AM CDT by: Edgard FROST
--- NOTE | 2017-09-08 18:22 | Diagnostic Imaging Report ---
MG TAVERAS [facility] [address] [facility] [address] [place], [place]. [address] Report Submission Date: Sep 08, 2017 10:20:20 AM CDT Patient Study Name: CORY BASILIO Date: Sep 08, 2017 9:39:10 AM CDT Modality Type: CT\SR Gender: M Description: CT BRAIN W/O CONTRAST : [birth year] Institution: [facility] Physician: MG TAVERAS Examination: CT head without contrast History: CT HEAD W/O CONTRAST, FALL TODAY, HIT HEAD ON CABINET, SUPERIOR SCALP LACERATION (Hx) Comparison exam: CT brain dated 11 January 2016 Technique: Noncontrast head CT protocol. Findings: Ventricles and sulci are prominent, though stable. Cerebrocerebellar parenchyma demonstrates periventricular low attenuation consistent with small vessel disease: also stable. No evidence for parenchymal hemorrhage. No evidence for mass or mass effect. No midline shift. No extra axial fluid collections. Partial visualization of the paranasal sinuses demonstrates mucus thickening. Mastoid air cells, orbits, skull and scalp without gross irregularity. Right frontal scalp hematoma. Vascular calcifications. Impression: Stable advanced age related changes. No acute parenchymal process. No hemorrhage. Right frontal scalp hematoma. Electronically signed on Sep 08, 2017 10:20:20 AM CDT by: Edgard FROST
== END 2017-09-08 11:32 | disposition home or self-care (01) ==
LOC: ED 09:16
DX: S09.90XA Unspecified injury of head, initial encounter (principal); S01.01XA Laceration without foreign body of scalp, initial encounter; W19.XXXA Unspecified fall, initial encounter; Y92.9 Unspecified place or not applicable; Y93.9 Activity, unspecified; Y99.9 Unspecified external cause status
CPT/HCPCS: 12004; 70450; 72125; 80053; 85025

== ENCOUNTER 2018-01-06 11:15 | Emergency (ER) | payer MEDICARE, OTHER ==
--- NOTE | 2018-01-06 11:23 | ED Physician Documentation ---
General Adult - HISTORIAN Historian: patient - HPI Stated Complaint: weakness at home now left knee pain Chief Complaint: Lower Extremity Problem Onset: hours (1) Timing: still present Severity: mild Further Comments: yes (per family he took his tramadol at 900 am and he was telling them his arms and legs felt numb - he reports that is not currently the case but his left knee is hurting - he states he has arthritis in the left knee and "all over" He denies any current weakness. At the time of the weakness he was able to walk and talk normally) Last known Well Code/Unknown Code: Unknown - ROS CONST: no problems EYES/ENT: denies: problems with vision CVS/RESP: denies: shortness of breath, cough GI/: denies: vomiting, nausea MS/SKIN/LYMPH: joint pain NEURO/PSYCH: dizziness. denies: headache, fainting - PAST HX Past History: COPD, other (arthritis ) Immunizations: UTD Allergies/Adverse Reactions: Allergies Allergy/AdvReac Type Severity Reaction Status Date / Time dextromethorphan HBr Allergy Verified 04/08/17 16:16 [From NyQuil] doxylamine succinate Allergy Verified 04/08/17 16:16 [From NyQuil] hydrocodone bitartrate Allergy Verified 04/08/17 16:16 [From [place]] pseudoephedrine HCl Allergy Verified 04/08/17 16:16 [From NyQuil] hydrocodone AdvReac Mental Verified 04/08/17 16:16 Status Changes watermelon Allergy Severe seizures Uncoded 04/08/17 16:16 Home Medications: Ambulatory Orders Medication Instructions Recorded Docusate Sodium [Stool Softener] 100 mg PO DAILY 12/24/16 Ferrous Sulfate [Feosol] 325 mg PO DAILY 12/24/16 Potassium Chloride [Klor-Con M20] 20 meq PO DAILY 01/06/18 Torsemide [Demadex] 20 mg PO DAILY 01/06/18 - SOCIAL HX Smoking History: cigarettes Alcohol Use: none Drug Use: none - FAMILY HX Family History: No - VITAL SIGNS Vital Signs: Vital Signs Temp Pulse Resp BP Pulse Ox 116/52 09/08/17 11:52 - REVIEWED ASSESSMENTS Nursing Assessment Reviewed: Yes Vitals Reviewed: Yes General Adult Physical Exam - PHYSICAL EXAM GENERAL APPEARANCE: no distress EENT: eye inspection normal, ENT inspection normal, pharynx normal, no signs of dehydration, REYNA, no nystagmus, TM's nml NECK: normal inspection RESPIRATORY: no resp distress, chest non-tender, breath sounds normal CVS: reg rate & rhythm, heart sounds normal ABDOMEN: soft, no distension BACK: normal inspection SKIN: warm/dry, normal color EXTREMITIES: non-tender NEURO: oriented X3, CN's nml as tested, motor nml, sensation nml, mood/affect nml, cognition normal Discharge Clincal Impression: Left knee pain Qualifiers: Chronicity: chronic Qualified Code(s): M25.562 - Pain in left knee Referrals: Diego Ross MD [Primary Care Provider] - 2 Days Additional Instructions: 1. Continue home meds 2. Follow up with PCP for any further concerns 3. Drink plenty of fluids 4. Change position slowly 5. Return to ER for any concerns Decision to Admit: NO Date of Decison to Admit: 01/06/18 Decision Time: 11:35
[2018-01-06 11:32] VITALS: BP 130/65
== END 2018-01-06 11:38 ==
LOC: ED 11:15
DX: M25.562 Pain in left knee (principal)
CPT/HCPCS: 99281; 99282

== ENCOUNTER 2018-02-26 11:40 | Emergency (ER) | payer MEDICARE, OTHER ==
--- NOTE | 2018-02-26 12:05 | ED Physician Documentation ---
General Adult - HISTORIAN Historian: patient - HPI Stated Complaint: cough, congestion, sinus pressure x 1 week Chief Complaint: General Adult Onset: days ago (7) Timing: still present Severity: mild Further Comments: yes (states no fever. congestion and cough (non productive) for one week. Has tried OTC meds. Back and stomach with increased pain with cou ghing. No pain while sitting and no coughing. Sick contacts at home. OTC meds with mild relief.) Last known Well Code/Unknown Code: Unknown - ROS CONST: recent illness. denies: fever EYES/ENT: none CVS/RESP: cough GI/: none MS/SKIN/LYMPH: denies: rash NEURO/PSYCH: denies: headache - PAST HX Past History: other (arthritis ) Immunizations: UTD Allergies/Adverse Reactions: Allergies Allergy/AdvReac Type Severity Reaction Status Date / Time dextromethorphan HBr Allergy Verified 02/26/18 12:30 [From NyQuil] doxylamine succinate Allergy Verified 02/26/18 12:30 [From NyQuil] hydrocodone bitartrate Allergy Verified 02/26/18 12:30 [From [place]] pseudoephedrine HCl Allergy Verified 02/26/18 12:30 [From NyQuil] hydrocodone AdvReac Mental Verified 02/26/18 12:30 Status Changes watermelon Allergy Severe seizures Uncoded 02/26/18 12:30 Home Medications: Ambulatory Orders Medication Instructions Recorded Ferrous Sulfate [Feosol] 325 mg PO DAILY 12/24/16 Potassium Chloride [Klor-Con M20] 20 meq PO DAILY 01/06/18 Torsemide [Demadex] 20 mg PO DAILY 01/06/18 Arformoterol Tartrate [Brovana] 15 mcg IH BID 01/07/18 Aspirin [Aspirin EC] 81 mg PO DAILY 01/07/18 Budesonide [Pulmicort] 0.25 mg IH DAILY 01/07/18 Celecoxib [Celebrex] 200 mg PO DAILY 01/07/18 - SOCIAL HX Smoking History: cigarettes Alcohol Use: none Drug Use: none - FAMILY HX Family History: No - VITAL SIGNS Vital Signs: Vital Signs Temp Pulse Resp BP Pulse Ox 131/67 01/26/18 14:20 - REVIEWED ASSESSMENTS Nursing Assessment Reviewed: Yes Vitals Reviewed: Yes General Adult Physical Exam - PHYSICAL EXAM GENERAL APPEARANCE: no distress EENT: eye inspection normal, no signs of dehydration, TM erythema (bilateral ) NECK: normal inspection RESPIRATORY: no resp distress, chest non-tender, breath sounds normal CVS: reg rate & rhythm, heart sounds normal ABDOMEN: soft, no distension SKIN: warm/dry, normal color EXTREMITIES: non-tender, normal range of motion, no evidence of injury, no edema NEURO: oriented X3 Discharge Clincal Impression: Sinusitis Qualifiers: Sinusitis location: frontal Chronicity: acute Recurrence: non-recurrent Qualified Code(s): J01.10 - Acute frontal sinusitis, unspecified Referrals: Diego Ross MD [Primary Care Provider] - 2 Days Comments: 1. Azithromycin (zpack) as directed 2. Medrol Dose pack - as directed 3. Continue meds 4. Encourage deep breathing 5. See PCP in 2-4 days if no improvement 6. Return to ER for any concerns Condition: Stable Disposition: 01 HOME, SELF-CARE Decision to Admit: NO Date of Decison to Admit: 02/26/18 Decision Time: 12:36
[2018-02-26 12:28] VITALS: BP 137/65
== END 2018-02-26 12:50 | disposition home or self-care (01) ==
LOC: ED 11:40
DX: J01.10 Acute frontal sinusitis, unspecified (principal); Z72.0 Tobacco use
CPT/HCPCS: 99281; 99282

== ENCOUNTER 2018-03-02 18:00 | Emergency (ER) | payer MEDICARE, OTHER ==
--- NOTE | 2018-03-02 18:30 | ED Physician Documentation ---
Upper Respiratory Symptoms - HISTORIAN Historian: other (caregiver) - HPI Stated Complaint: cough Chief Complaint: Cough/ Upper Respiratory Additional Information: Patient presents to ED with a 2 hour history of cough. Onset: hours (24) Duration: intermittent episodes Context: denies: recent foreign travel Associated Symptoms: denies: fever, chills, shortness of breath, hurts to breathe - ROS CONST/EYES: denies: weakness CVS/RESP: denies: chest pain, shortness of breath LYMPH: denies: leg swelling, ankle swelling GI/: none, vomiting, nausea NEURO/PSYCH: dizziness MS/SKIN: muscle aches - PAST HX Lung Disease: COPD PE Risk Factors: hypertension Surgeries/Procedures: none Allergies/Adverse Reactions: Allergies Allergy/AdvReac Type Severity Reaction Status Date / Time dextromethorphan HBr Allergy Verified 03/02/18 19:02 [From NyQuil] doxylamine succinate Allergy Verified 03/02/18 19:02 [From NyQuil] hydrocodone bitartrate Allergy Verified 03/02/18 19:02 [From [place]] pseudoephedrine HCl Allergy Verified 03/02/18 19:02 [From NyQuil] hydrocodone AdvReac Mental Verified 03/02/18 19:02 Status Changes watermelon Allergy Severe seizures Uncoded 03/02/18 19:02 Home Medications: Ambulatory Orders Medication Instructions Recorded Ferrous Sulfate [Feosol] 325 mg PO DAILY 12/24/16 Potassium Chloride [Klor-Con M20] 20 meq PO DAILY 01/06/18 Torsemide [Demadex] 20 mg PO DAILY 01/06/18 Arformoterol Tartrate [Brovana] 15 mcg IH BID 01/07/18 Aspirin [Aspirin EC] 81 mg PO DAILY 01/07/18 Budesonide [Pulmicort] 0.25 mg IH DAILY 01/07/18 Celecoxib [Celebrex] 200 mg PO DAILY 01/07/18 Ipratropium/Albuterol Sulfate 3 ml NEB QID #120 ampul.neb 03/02/18 [Duoneb] predniSONE [Deltasone] 20 mg PO DIRECTED #32 tablet 03/02/18 - SOCIAL HX Smoking History: non-smoker, secondhand Alcohol Use: none Drug Use: none - FAMILY HX Family History: none - VITAL SIGNS Vital Signs: Vital Signs Temp Pulse Resp BP Pulse Ox 97.9 F 74 18 138/79 93 03/02/18 18:00 03/02/18 18:00 03/02/18 18:00 03/02/18 18:00 03/02/18 18:00 - REVIEWED ASSESSMENTS Nursing Assessment Reviewed: Yes Vitals Reviewed: Yes ED Results Lab/Radiology - Radiology Radiology Impressions: Examination: PA and lateral chest. History: Evaluate lung bishop. soa, weakness (Hx Comparison exam: 26 January 2018 Findings: PA and lateral views of the chest demonstrates a normal cardiac and mediastinal silhouette. Tortuous aorta with vascular calcifications. Chronic interstitial changes. No focal infiltrate. No blunting of the costophrenic margins. Flattening of the diaphragm and lateral view. Osseous structures are appropriate for age. Impression: Chronic interstitial changes. No acute pulmonary process. Electronically signed on Mar 02, 2018 8:00:47 PM ASSISTANT CUSTOMER SERVICE MANAGER by: Edgard Gavin - Orders Orders: ED Orders Category Date Time Status CHEST 2VIEW [RAD] Stat Exams 03/02/18 Taken Azithromycin [Zithromax] Med 03/02/18 19:36 Discontinued 500 mg PO NOW ONE Ipratropium/Albuterol Sulfate [Duoneb] Med 03/02/18 18:31 Discontinued 3 ml NEB NOW ONE predniSONE [Deltasone] Med 03/02/18 19:36 Discontinued 60 mg PO NOW ONE Upper Respiratory Symptoms - EXAM General Appearance: no acute distress, alert Neck: supple Respiratory: other (markedly diminished breath sounds bilaterally) Abdomen: non-tender, no distention. No: tenderness CVS: reg rate & rhythm Skin: color nml, no rash Extremities: no edema Neuro/Psych: oriented x3, mood/affect nml Discharge Clincal Impression: COPD with acute exacerbation Prescriptions: Ipratropium/Albuterol Sulfate [Duoneb] 3 ml NEB QID #120 ampul.neb predniSONE [Deltasone] 20 mg PO DIRECTED #32 tablet Referrals: Diego Ross MD [Primary Care Provider] - 2 Days Additional Instructions: 1. Use Duonebs every 6 hours 2. Take Prednisone as prescribed 3. Follow up with PCP within 1 week 4. Return to ER with new or worsening symptoms. Condition: Stable Disposition: HOME, SELF-CARE Decision to Admit: NO Date of Decison to Admit: 03/02/18 Decision Time: 20:10
[2018-03-02] MEDS ORDERED: IPRATROPIUM/ALBUTEROL SULFATE 3 ML AMPUL.NEB NEB ONE (18:31)
[2018-03-02] MEDS ORDERED: predniSONE 10 MG TABLET PO ONE (19:36)
[2018-03-02] MEDS ORDERED: AZITHROMYCIN 250 MG TABLET PO ONE (19:36)
[2018-03-02 21:26] VITALS: BP 138/68
--- NOTE | 2018-03-03 02:06 | Diagnostic Imaging Report ---
YAMEL LOVE [facility] [address] [facility] [address] [place], [place]. [address] Report Submission Date: Mar 02, 2018 8:00:47 PM CONTINUOUS ABSORPTION PROCESS OPERATOR Patient Study Name: CORY BASILIO Date: Mar 02, 2018 7:20:53 PM CONTINUOUS ABSORPTION PROCESS OPERATOR Modality Type: DX Gender: M Description: CHEST : [birth year] Institution: [facility] Physician: YAMEL LOVE Examination: PA and lateral chest. History: Evaluate lung bishop. soa, weakness (Hx Comparison exam: 26 January 2018 Findings: PA and lateral views of the chest demonstrates a normal cardiac and mediastinal silhouette. Tortuous aorta with vascular calcifications. Chronic interstitial changes. No focal infiltrate. No blunting of the costophrenic margins. Flattening of the diaphragm and lateral view. Osseous structures are appropriate for age. Impression: Chronic interstitial changes. No acute pulmonary process. Electronically signed on Mar 02, 2018 8:00:47 PM CONTINUOUS ABSORPTION PROCESS OPERATOR by: Edgard FROST
== END 2018-03-02 20:55 | disposition home or self-care (01) ==
LOC: ED 18:00
DX: J44.1 Chronic obstructive pulmonary disease with (acute) exacerbation (principal); Z77.22 Contact with and (suspected) exposure to environmental tobacco smoke (acute) (chronic)
CPT/HCPCS: 71046; 94640; 99282; 99283; J7512

== ENCOUNTER 2018-03-07 09:52 | Emergency (ER) | payer MEDICARE, OTHER ==
[2018-03-07] MEDS ORDERED: IPRATROPIUM/ALBUTEROL SULFATE 3 ML AMPUL.NEB NEB ONE (10:17)
--- NOTE | 2018-03-07 10:21 | ED Physician Documentation ---
Dyspnea - HPI Stated Complaint: soa/cough Chief Complaint: Dyspnea Additional Information: Patient, with past medical history of COPD and CHF, presents with ongoing cough and dyspnea refractory to oral Prednisone and Azithromycin. Patient's family reports patient has become more short of breath, more productive cough with sputum production. He started complaining of left chest pain today so they brought him back to the ER. Denies fever, chills, nausea/vomiting. Onset: days ago Duration: continues in ED Initiating Event: upper respiratory illness Severity: moderate Exacerbated By: exertion Associated Symptoms: chest pain, productive cough. denies: chills, fever - ROS CONST: weakness EYES/ENT: denies: nasal congestion GI/: denies: vomiting, nausea NEURO/PSYCH: denies: headache MS/SKIN/LYMPH: muscle aches - PAST HX Lung Disease: COPD Cardiac Disease: CHF PE Risk Factors: hypertension Surgeries/Procedures: none Allergies/Adverse Reactions: Allergies Allergy/AdvReac Type Severity Reaction Status Date / Time dextromethorphan HBr Allergy Verified 03/07/18 10:16 [From NyQuil] doxylamine succinate Allergy Verified 03/07/18 10:16 [From NyQuil] hydrocodone bitartrate Allergy Verified 03/07/18 10:16 [From [place]] pseudoephedrine HCl Allergy Verified 03/07/18 10:16 [From NyQuil] hydrocodone AdvReac Mental Verified 03/07/18 10:16 Status Changes watermelon Allergy Severe seizures Uncoded 03/07/18 10:16 Home Medications: Ambulatory Orders Medication Instructions Recorded Ferrous Sulfate [Feosol] 325 mg PO DAILY 12/24/16 Potassium Chloride [Klor-Con M20] 20 meq PO DAILY 01/06/18 Torsemide [Demadex] 20 mg PO DAILY 01/06/18 Arformoterol Tartrate [Brovana] 15 mcg IH BID 01/07/18 Aspirin [Aspirin EC] 81 mg PO DAILY 01/07/18 Budesonide [Pulmicort] 0.25 mg IH DAILY 01/07/18 Celecoxib [Celebrex] 200 mg PO DAILY 01/07/18 Ipratropium/Albuterol Sulfate 3 ml NEB QID #120 ampul.neb 03/02/18 [Duoneb] predniSONE [Deltasone] 20 mg PO DIRECTED #32 tablet 03/02/18 - SOCIAL HX Smoking History: non-smoker, quit greater than 1 year Alcohol Use: none Drug Use: none - FAMILY HX Family History: none - VITAL SIGNS Vital Signs: Vital Signs Temp Pulse Resp BP Pulse Ox 98.7 F 94 H 23 145/82 90 L 03/07/18 09:52 03/07/18 09:52 03/07/18 09:52 03/07/18 09:52 03/07/18 09:52 - REVIEWED ASSESSMENTS Nursing Assessment Reviewed: Yes Vitals Reviewed: Yes Progress - Progress Progress: [address] Downey. She states patient needs new diagnosis of lung mass worked up by [facility]. She wants patient transferred to [place]. 1350 Discussed with [facility]. Waiting for accepting Physician. [address] Gomez, Hospitalist at [place]. Agrees with admission. Patient will be admitted to Step down unit. - EKG/XRAY/CT Comments: sinus rhytym with occasional PVC, incomplete RBBB, old infarct ED Results Lab/Radiology - Radiology Radiology Impressions: CT chest PE protocol History: Short of breath. Chest pain Technique: Helically acquired images were obtained through the chest using a pulmonary embolism protocol. There are no relevant comparison studies. No filling defects are identified within the pulmonary arteries to suggest pulmonary embolism. However, there are significant findings otherwise. There is heavy atherosclerosis of the thoracic aorta, especially at the aortic arch. Small subcarinal calcifications are present and there is a probable calcified granuloma at the left upper lobe consistent with old granulomatous disease. However, anteriorly at the right upper lobe, there is a spiculated nodule measuring 1.4 x 0.8 cm in greatest dimension, concerning for a primary lung malignancy. Additionally, posteriorly and medially at the right upper lobe and abutting the posteromedial pleura and posterior mediastinum, there is a rounded soft tissue mass measuring approximately 3.6 x 2.7 x 2.6 cm in greatest dimension. This mass is strongly concerning for a primary lung malignancy as well. There is an advanced background of emphysema. However, there are also patchy areas of airspace disease involving the left lower lobe and mildly the lingula and more extensively involving the posterior right upper lobe and the posterior right lower lobe. These bilateral regions of airspace disease would be consistent with bilateral pneumonia. There is no pleural effusion. No mediastinal or hilar lymphadenopathy is noted. There is no pericardial effusion. There is old granulomatous disease of the spleen. The left adrenal gland is not imaged in its entirety. The visualized portion appears normal. There is a 7 mm nodule of right adrenal gland, perhaps a small metastasis. Cysts are present of the visualized upper kidneys. Visualized portions of the pancreas and liver are unremarkable. Multilevel degenerative findings are present of the lower cervical and upper thoracic spine. There is an age indeterminate compression deformity of L1 with mild retropulsion. There is an estimated 40% loss of vertebral body height. Impression: ANTERIORLY AT THE RIGHT UPPER LOBE, THERE IS A SPICULATED MASS DETAILED IN THE BODY OF THE REPORT. ADDITIONALLY, POSTEROMEDIALLY AT THE RIGHT UPPER LOBE, THERE IS A PLEUROPARENCHYMAL MASSLIKE OPACITY. BOTH OF THESE LESIONS ARE CONCERNING FOR PRIMARY LUNG MALIGNANCIES. PLEASE SEE BODY OF REPORT FOR MEASUREMENT DETAIL. Additionally, there are bilateral regions of airspace disease as detailed in the body of the report and consistent with bilateral pneumonia. Advanced emphysema. Old granulomatous disease. There is a 7 mm nodule at the left upper lobe which likely represents a granuloma as there are central calcifications. No mediastinal or hilar lymphadenopathy is noted. There is a 7 mm nodule of the right adrenal gland, too small to characterize with certainty. Given the right lung findings, the possibility of a small adrenal metastasis would not be excluded. Cysts at the visualized upper kidneys. Multilevel degenerative findings of the lower cervical and upper thoracic spine. Age indeterminate L1 compression fracture with an estimated 40% loss of vertebral body height. If the patient is able, MRI may be helpful in this regard. Electronically signed on Mar 07, 2018 12:27:10 PM BILINGUAL COUNTER SALES RETAIL by: Traci Addison - Orders Orders: ED Orders Category Date Time Status Place IV Lock 1T Care 03/07/18 09:[address] PE CHEST Stat Exams 03/07/18 Ordered CBC/PLATELET/DIFF Routine Lab 03/07/18 Ordered CMP Routine Lab 03/07/18 Ordered NT-proBNP Stat Lab 03/07/18 Ordered TROPONIN I (cTnI) Stat Lab 03/07/18 Ordered Ipratropium/Albuterol Sulfate [Duoneb] Med 03/07/18 10:17 Once 3 ml NEB NOW ONE Oxygen Daily Oxygen 03/07/18 10:15 Ordered EKG WITH COMPARISON Stat Ther 03/07/18 Ordered Dyspnea Physical Exam - EXAM General Appearance: no acute distress, alert EENT: REYNA Neck: No: lymphadenopathy Respiratory: no resp. distress, decreased air movement, rhonchi (right) CVS: reg. rate & rhythm, no murmur Abdomen: non-tender. No: tenderness Skin: pallor Extremities: non-tender Neuro/Psych: oriented x3, motor nml Discharge Clincal Impression: Lung mass Bilateral pneumonia Qualifiers: Pneumonia type: due to other aerobic Gram-negative bacteria Lung location: upper lobe of lung Qualified Code(s): J15.6 - Pneumonia due to other Gram- negative bacteria Referrals: Diego Ross MD [Primary Care Provider] - 2 Days Additional Instructions: Transferred to [facility] under the care of Dr. Gomez Condition: Stable Disposition: ER [facility] Decision to Admit: [id number] Date of Decison to Admit: 03/07/18 Decision Time: 12:32
[2018-03-07] MEDS ORDERED: LEVOFLOXACIN 500MG/D5W 100ML 500 MG in PREMIX BAG 1 BAG IV ONE (10:48)
[2018-03-07] MEDS ORDERED: LEVOFLOXACIN 250MG/D5W 50ML 250 MG in PREMIX BAG 1 BAG IV ONE (10:48)
[2018-03-07] MEDS ORDERED: LEVOFLOXACIN 500MG/D5W 100ML 100 ML IV ONE (10:50)
[2018-03-07] MEDS ORDERED: LEVOFLOXACIN 250MG/D5W 50ML 50 ML IV ONE (10:50)
[2018-03-07 10:57] LABS: eGFR (Non-African) 55
[2018-03-07] MEDS ORDERED: 0.9 % SODIUM CHLORIDE 500 ML IV ONE (11:03)
[2018-03-07 11:11] LABS: MEAN CORPUSCULAR HEMOGLOBIN 29.1 pg (28.0-34.0)
[2018-03-07 11:12] LABS: SEGMENTED NEUTROPHILS % 68 % (39-79)
[2018-03-07 11:13] LABS: ANISOCYTOSIS 1+ (NEGATIVE); BASOPHILS % 0 % (0-2); EOSINOPHILS % 0 % (0-7); HYPOCHROMASIA 1+ (NEGATIVE); MONOCYTES % 8 % (0-11)
--- NOTE | 2018-03-08 04:54 | Diagnostic Imaging Report ---
YAMEL LOVE [facility] [address] [facility] [address] [place] [address]. [id number] Report Submission Date: Mar 07, 2018 12:27:10 PM AIRCRAFT ENGINE INSTALLER Patient Study Name: CORY BASILIO Date: Mar 07, 2018 11:17:01 AM AIRCRAFT ENGINE INSTALLER Modality Type: CT\SR Gender: M Description: CT PE CHEST : [birth year] Institution: [facility] Physician: YAMEL LOVE CT chest PE protocol History: Short of breath. Chest pain Technique: Helically acquired images were obtained through the chest using a pulmonary embolism protocol. There are no relevant comparison studies. No filling defects are identified within the pulmonary arteries to suggest pulmonary embolism. However, there are significant findings otherwise. There is heavy atherosclerosis of the thoracic aorta, especially at the aortic arch. Small subcarinal calcifications are present and there is a probable calcified granuloma at the left upper lobe consistent with old granulomatous disease. However, anteriorly at the right upper lobe, there is a spiculated nodule measuring 1.4 x 0.8 cm in greatest dimension, concerning for a primary lung malignancy. Additionally, posteriorly and medially at the right upper lobe and abutting the posteromedial pleura and posterior mediastinum, there is a rounded soft tissue mass measuring approximately 3.6 x 2.7 x 2.6 cm in greatest dimension. This mass is strongly concerning for a primary lung malignancy as well. There is an advanced background of emphysema. However, there are also patchy areas of airspace disease involving the left lower lobe and mildly the lingula and more extensively involving the posterior right upper lobe and the posterior right lower lobe. These bilateral regions of airspace disease would be consistent with bilateral pneumonia. There is no pleural effusion. No mediastinal or hilar lymphadenopathy is noted. There is no pericardial effusion. There is old granulomatous disease of the spleen. The left adrenal gland is not imaged in its entirety. The visualized portion appears normal. There is a 7 mm nodule of right adrenal gland, perhaps a small metastasis. Cysts are present of the visualized upper kidneys. Visualized portions of the pancreas and liver are unremarkable. Multilevel degenerative findings are present of the lower cervical and upper thoracic spine. There is an age indeterminate compression deformity of L1 with mild retropulsion. There is an estimated 40% loss of vertebral body height. Impression: ANTERIORLY AT THE RIGHT UPPER LOBE, THERE IS A SPICULATED MASS DETAILED IN THE BODY OF THE REPORT. ADDITIONALLY, POSTEROMEDIALLY AT THE RIGHT UPPER LOBE, THERE IS A PLEUROPARENCHYMAL MASSLIKE OPACITY. BOTH OF THESE LESIONS ARE CONCERNING FOR PRIMARY LUNG MALIGNANCIES. PLEASE SEE BODY OF REPORT FOR MEASUREMENT DETAIL. Additionally, there are bilateral regions of airspace disease as detailed in the body of the report and consistent with bilateral pneumonia. Advanced emphysema. Old granulomatous disease. There is a 7 mm nodule at the left upper lobe which likely represents a granuloma as there are central calcifications. No mediastinal or hilar lymphadenopathy is noted. There is a 7 mm nodule of the right adrenal gland, too small to characterize with certainty. Given the right lung findings, the possibility of a small adrenal metastasis would not be excluded. Cysts at the visualized upper kidneys. Multilevel degenerative findings of the lower cervical and upper thoracic spine. Age indeterminate L1 compression fracture with an estimated 40% loss of vertebral body height. If the patient is able, MRI may be helpful in this regard. Electronically signed on Mar 07, 2018 12:27:10 PM AIRCRAFT ENGINE INSTALLER by: Traci FROST
[2018-03-08 06:52] VITALS: BP 147/77
== END 2018-03-07 16:00 | disposition short-term general hospital (02) ==
LOC: ED 09:52
DX: J15.6 Pneumonia due to other Gram-negative bacteria (principal); R91.8 Other nonspecific abnormal finding of lung field
CPT/HCPCS: 36415; 71275; 80053; 83880; 84484; 85025; 87040; 93005; 94640; 96365; 96366; 99285; J1956; J7060; Q9967; S1016

== ENCOUNTER 2018-03-13 17:58 | Observation (INO) | payer MEDICARE, OTHER ==
[2018-03-13] MEDS ORDERED: 0.9 % SODIUM CHLORIDE 1,000 ML IV SCH ×2 (18:45→23:45)
[2018-03-13] MEDS ORDERED: 0.9 % SODIUM CHLORIDE 1,000 ML IV ONE ×2 (18:48→22:52)
[2018-03-13 19:14] LABS: eGFR (Non-African) > 60
[2018-03-13 19:15] LABS: MEAN CORPUSCULAR HEMOGLOBIN 28.6 pg (28.0-34.0)
[2018-03-13 19:40] LABS: ANISOCYTOSIS 1+ (NEGATIVE); HYPOCHROMASIA 1+ (NEGATIVE)
[2018-03-13 19:41] LABS: PLT EST. EST. AGREES W/PLT CT
[2018-03-13] MEDS ORDERED: ALBUTEROL SULFATE 2.5 MG/3 ML AMPUL.NEB NEB ONE (21:59)
[2018-03-13] MEDS ORDERED: ONDANSETRON HCL/PF 4 MG/ 2ML VIAL ONE (22:37)
--- NOTE | 2018-03-13 23:37 | History and Physical Report ---
History of Present Illnes - History of Present Illness Reason for Visit: UNABLE TO TAKE MEDS-EXCESS EMESIS History of Present Illness: RECENT DX CA LUNG-RT PNEUMONIA DEMENTIA - Past Medical History Cardiac: HTN, Hyperlipidemia Pulmonary: COPD Heme/Onc: Cancer (prostate) Musculoskeletal: Osteoarthritis (Shoulders, Knees and hips ) Renal/: Other (PNEUMONIA CA RT LUNG DEMENTIA) - Past Surgical History Past Surgical History: Appendectomy, Other (Hemorrhoidectomy, vasectomy) - Past Social History Smoke: # pack years (50) Alcohol: None Drugs: None Lives: With Family Domestic Violence: Negative - Health Maintenance Health Maintenance: denies: Cholesterol, Influenza Vaccine, Pneumococcal Vaccine Pneumonia Vaccine: No Review of Systems - Review of Systems Constitutional: Weakness, Malaise Eyes: vision change (DECREASED) ENT: negative: Ear Pain, Nose Pain Respiratory: Dry, Shortness of Breath, SOB with Excertion Cardiovascular: negative: Chest Pain, Palpitations, Orthopnea Gastrointestinal: Nausea, Vomiting (UNABLE TO HOLD DOWN ANY PNEUMONIA MEDS AND MOST FOOD-CAN HOLD DOWN SOMEFLUIDS) Genitourinary: Other (DEC OUTPUT) Musculoskeletal: negative: Neck Pain Skin: negative: Rash Neurological: Weakness, Incoordination, Confusion - Medications/Allergies Allergies/Adverse Reactions: Allergies Allergy/AdvReac Type Severity Reaction Status Date / Time melon Allergy Severe seizures Verified 03/14/18 07:30 dextromethorphan HBr Allergy Unknown Verified 03/14/18 07:30 [From NyQuil] doxylamine succinate Allergy Unknown Verified 03/14/18 07:30 [From NyQuil] hydrocodone bitartrate Allergy Unknown Verified 03/14/18 07:30 [From [place]] pseudoephedrine HCl Allergy Unknown Verified 03/14/18 07:30 [From NyQuil] hydrocodone AdvReac Unknown Mental Verified 03/14/18 07:30 Status Changes Current Inpatient Medications: Current Inpatient Medications Sodium Chloride (Normal Saline) 1,000 mls @ 100 mls/hr IV Q10H DANISH Last Admin: 03/13/18 18:52 Dose: 100 mls/hr Exam - Exam Vital Signs: Vital Signs (72 hours) 03/13/18 03/13/18 03/13/18 18:00 22:03 23:13 Temperature 97.4 F L 98.6 F Pulse Rate [ 88 83 83 Left Pulse ox] Respiratory 15 24 28 H Rate Blood Pressure 135/69 158/64 172/86 [R ARM] O2 Sat by Pulse 96 97 97 Oximetry General: Alert, Cooperative, Moderate distress HEENT: Atraumatic Neck: Stridor Lungs: Speaks full Sentences, Wheezes, Rales, Rhonchi Cardiovascular: Regular rate Abdomen: Soft, No tenderness Integumentary: Normal, Dry, Pale, Decreased Turgor Extremities: No clubbing, No cyanosis, No edema, Normal pulses, No tend erness/swelling Neurological: Normal speech Psych/Mental Status: Other (LRYHARGIC) - Laboratory Results Laboratory Results: Laboratory Results 03/13/18 03/13/18 18:14 18:14 WBC 11.70 RBC 3.69 L Hgb 10.6 L Hct 32.8 L MCV 89.0 MCH 28.6 MCHC 32.2 RDW 14.8 H Plt Count 210 Band Neutrophils % 4 Platelet Estimate Est. agrees w/plt ct Plt Morphology Comment Normal Hypochromasia 1+ H Poikilocytosis 2+ H Anisocytosis 1+ H Sodium 138 Potassium 3.6 Chloride 102 Carbon Dioxide 26 BUN 20 Creatinine 1.00 Estimated Creat Clear 32 Est GFR ( Amer) > 60 Est GFR (Non-Af Amer) > 60 Glucose 117 H Calcium 8.7 Total Bilirubin 0.3 AST 35 ALT 47 Alkaline Phosphatase 106 Total Protein 6.7 Albumin 3.3 L VTE Assessment - RISK FACTOR SCORE VTE RISK FACTOR SCORES: AGE OVER 60 YEARS - RISK VTE MODERATE RISK: SCORE OF 2 (RISK PROXIMAL DVT 2-4%) PROPHYAXIS NEEDED
[2018-03-13] MEDS ORDERED: ALBUTEROL SULFATE 2.5 MG/3 ML AMPUL.NEB NEB PRN (23:56)
[2018-03-14 00:49] VITALS: BMI 16.6
--- NOTE | 2018-03-14 02:11 | Diagnostic Imaging Report ---
ENEDELIA PATRICK [facility] [id number] [facility] [address] [place] [address]. [id number] Report Submission Date: Mar 13, 2018 8:12:10 PM PALLET RECTIFIER Patient Study Name: CORY BASILIO Date: Mar 13, 2018 7:08:00 PM PALLET RECTIFIER Modality Type: DX Gender: M Description: CHEST,ABDOMEN : [birth year] Institution: [facility] Physician: ENEDELIA PATRICK Examination: Obstruction series History: soa, hx pneumonia, lung ca ( Findings: 3 views obtained of the chest and abdomen. Stool and air filled loops of large bowel. Small bowel demonstrates prominence with few air-fluid levels left midabdomen. Lungs demonstrate parenchymal haziness, right greater than left. No definite blunting of the costophrenic margins. Extensive articular degenerative changes. Impression: Stool and air filled large bowel without obstruction. Mildly prominent loops of small bowel within the left midabdomen associated air- fluid levels - nonspecific. May represent mild enteritis. Right greater than left parenchymal haziness without effusion. Electronically signed on Mar 13, 2018 8:12:10 PM PALLET RECTIFIER by: Edgard Gavin There are persistent right lung infiltrates. The left lung infiltrates appear improved given differences in technique. Addendum electronically signed by Jasbir Burns on March 13, 2018 8:47:18 PM PALLET RECTIFIER MTDD
[2018-03-14] MEDS ORDERED: ONDANSETRON HCL/PF 4 MG/ 2ML VIAL IVP PRN (02:13)
[2018-03-14] MEDS: 0.9 % SODIUM CHLORIDE 1,000 ML IV SCH ×3 (02:28→17:15)
[2018-03-14] MEDS ORDERED: AMOXICILLIN/POT 875/125 1 EACH PO SCH (07:00)
--- NOTE | 2018-03-14 07:21 | Inpatient Progress Note ---
Subjective - Required Recertification Statement I anticipate X number of days because-include discharge plan: 1 - Review of Systems Events since last encounter: According to staff patient was very upset last night because he feels that his daughter and son-in-law are trying to take everything he has. Daughter told ER provider that assisted placement was not an option- however it is questioned how well patient is being cared for at home. He has not had any nausea or vomit ing since admission- he is alert and oriented. We will get with Corporate Communications Specialist (patient wants to talk to his son Chava- whom he trusts) and evaluate patient for SNF or assisted placement. General: Fatigue HEENT: Denies: Eye Pain, Ear Pain Pulmonary: Denies: Dyspnea Cardiovascular: Denies: Chest Pain, Edema Gastrointestinal: Denies: Nausea, Vomiting (family stated that patient has N/V prior to admission), Abdominal Pain Genitourinary: Denies: Dysuria Musculoskeletal: Shoulder Pain (chronic arthritis), Arm Pain, Back Pain Neurological: Weakness Objective - Exam Vitals and I&O: Vital Signs Temp 97.4 F L 03/14/18 05:59 Pulse 88 03/14/18 05:59 Resp 20 03/14/18 05:59 BP 110/52 03/14/18 05:59 Pulse Ox 96 03/14/18 05:59 Intake & Output 03/13/18 03/13/18 03/14/18 11:59 23:59 11:59 Intake Total 400 Output Total 1450 Balance -1050 Weight 43.998 kg Intake: Oral 400 Output: Urine 1450 Other: Voiding Method Urinal Urinal # Voids 1 General: Alert, Oriented to Person, Oriented to Place, Cooperative (Very [place]), No acute distress HEENT: PERRLA, Mouth Mucous membr. moist/[place], Other (pt has a bruise on forehead from a fall while in the hospital in [place]) Neck: +2 carotid pulse wo bruit Lungs: Clear to auscultation, Normal air movement, Speaks full Sentences Cardiovascular: Regular rate, Normal S1, Normal S2 Abdomen: Normal bowel sounds, Soft, No tenderness Extremities: Normal pulses, No tenderness/swelling Skin: Warm, Dry, Pale, Other (skin tear to the right elbow- present on admission) Neurological: Normal speech, Strength Equal Bilat, Generalized Weakness Psych/Mental Status: Mental status NL, Mood NL, Appropriate Affect - Results Results: Laboratory Results WBC 11.70 K/ul (4.00-12.00) 03/13/18 18:14 RBC 3.69 M/ul (3.90-5.20) L 03/13/18 18:14 Hgb 10.6 g/dL (12.0-18.0) L 03/13/18 18:14 Hct 32.8 % (37.0-53.0) L 03/13/18 18:14 MCV 89.0 fl (80.0-100.0) 03/13/18 18:14 MCH 28.6 pg (28.0-34.0) 03/13/18 18:14 MCHC 32.2 g/dL (30.0-36.0) 03/13/18 18:14 RDW 14.8 % (11.3-14.3) H 03/13/18 18:14 Plt Count 210 K/mm3 (130-400) 03/13/18 18:14 Band Neutrophils % 4 % (0-12) 03/13/18 18:14 Platelet Estimate Est. agrees w/plt ct 03/13/18 18:14 Plt Morphology Comment Normal (NORMAL) 03/13/18 18:14 Hypochromasia 1+ (NEGATIVE) H 03/13/18 18:14 Poikilocytosis 2+ (NEGATIVE) H 03/13/18 18:14 Anisocytosis 1+ (NEGATIVE) H 03/13/18 18:14 Sodium 138 mmol/L (136-145) 03/13/18 18:14 Potassium 3.6 mmol/L (3.5-5.1) 03/13/18 18:14 Chloride 102 mmol/L (98-107) 03/13/18 18:14 Carbon Dioxide 26 mmol/L (22-30) 03/13/18 18:14 BUN 20 mg/dL (9-20) 03/13/18 18:14 Creatinine 1.00 mg/dL (0.66-1.25) 03/13/18 18:14 Estimated Creat Clear 32 03/13/18 18:14 Est GFR ( Amer) > 60 (60-) 03/13/18 18:14 Est GFR (Non-Af Amer) > 60 (60-) 03/13/18 18:14 Glucose 117 mg/dL (74-106) H 03/13/18 18:14 Calcium 8.7 mg/dL (8.4-10.2) 03/13/18 18:14 Total Bilirubin 0.3 mg/dL (0.2-1.3) 03/13/18 18:14 AST 35 U/L (15-46) 03/13/18 18:14 ALT 47 U/L (13-69) 03/13/18 18:14 Alkaline Phosphatase 106 U/L (38-126) 03/13/18 18:14 Total Protein 6.7 g/dL (6.3-8.2) 03/13/18 18:14 Albumin 3.3 g/dL (3.5-5.0) L 03/13/18 18:14 Assessment/Plan - Assessment/Plan (1) Bilateral pneumonia Status: Acute Qualifiers: Pneumonia type: due to other aerobic Gram-negative bacteria Lung location: upper lobe of lung Qualified Code(s): J15.6 - Pneumonia due to other Gram- negative bacteria Assessment: LCTA, VSS Plan: Will continue with Augmentin PO and HFN txs (2) COPD (chronic obstructive pulmonary disease) Status: Acute Assessment: LCTA Plan: HFN tx scheduled (3) Dementia Status: Acute Assessment: will monitor patient to prevent falls Plan: Bed and personal alarms on patient (4) Fall Status: Acute Qualifiers: Encounter type: initial encounter Qualified Code(s): W19.XXXA - Unspecified fall, initial encounter Assessment: History of falls, staff monitoring closely Plan: Personal and bed alarms, room close to nurses station (5) Generalized osteoarthritis Status: Acute Assessment: stable on home meds Plan: Will continue on pain medication (6) HTN (hypertension) Status: Acute Assessment: Stable on home meds Plan: Will continue home meds (7) Minor head injury Status: Acute Qualifiers: Encounter type: initial encounter Qualified Code(s): S09.90XA - Unspecified injury of head, initial encounter Assessment: Monitoring neuro status- pleasant and alert Plan: Personal and bed alarms on to prevent falls
[2018-03-14] MEDS ORDERED: ONDANSETRON HCL/PF 4 MG/ 2ML VIAL ONE (07:23)
[2018-03-14] MEDS ORDERED: oxyCODONE/ACETAMINOPHEN 5/325 TABLET PO PRN (07:35)
[2018-03-14] MEDS: AMOXICILLIN/POT 875/125 1 EACH PO SCH ×2 (08:06→17:39)
[2018-03-14] MEDS ORDERED: BUDESONIDE 0.25 MG IH SCH (09:00)
[2018-03-14] MEDS ORDERED: ARFORMOTEROL 15 MCG/2 ML IH SCH (09:00)
[2018-03-14] MEDS: CELECOXIB 100 MG CAPSULE PO SCH (09:34)
[2018-03-14] MEDS: POTASSIUM CHLORIDE 20 MEQ TABLET.ER PO SCH (09:34)
[2018-03-14] MEDS: TORSEMIDE 20 MG TABLET PO SCH (09:35)
[2018-03-14] MEDS: ALBUTEROL SULFATE 2.5 MG/3 ML AMPUL.NEB NEB SCH ×4 (09:50→21:22)
[2018-03-14] MEDS: FLUTICASONE PROPIONATE 50 MCG BLST.W.DEV IH SCH (21:23)
[2018-03-15] MEDS: ALBUTEROL SULFATE 2.5 MG/3 ML AMPUL.NEB NEB SCH ×3 (01:21→08:29)
[2018-03-15] MEDS: 0.9 % SODIUM CHLORIDE 1,000 ML IV SCH (04:58)
[2018-03-15] MEDS: AMOXICILLIN/POT 875/125 1 EACH PO SCH (08:08)
[2018-03-15] MEDS: CELECOXIB 100 MG CAPSULE PO SCH (08:09)
[2018-03-15] MEDS: TORSEMIDE 20 MG TABLET PO SCH (08:09)
[2018-03-15] MEDS: FLUTICASONE PROPIONATE 50 MCG BLST.W.DEV IH SCH (08:10)
[2018-03-15] MEDS: POTASSIUM CHLORIDE 20 MEQ TABLET.ER PO SCH (08:10)
[2018-03-15 08:37] VITALS: BP 121/63
--- NOTE | 2018-03-15 08:54 | Discharge Summary ---
Discharge Summary - Discharge Sumary History of Present Illness: Patient is an 87-year-old white male with past medical history of COPD and CHF, presented to ED with ongoing cough and dyspnea refractory to oral Prednisone and Azithromycin. Patient's family reports patient has become more short of breath, more productive cough with sputum production and chest pain. Patient was seen in the ED and found to have lung masses and transferred to [facility]. There he was treated for acute exacerbation of COPD, and pneumonia (felt to be related to strep pneumonia). No work-up noted on his lung mass felt to be related to cancer. Patient was discharged home where he lives with his daughter. He started to have some nausea and vomiting. His daughter was not able to provide for his care and was subsequently admitted to observation care. Condition at Discharge: Stable Home Medications: Ambulatory Orders Medication Instructions Recorded Ferrous Sulfate [Feosol] 325 mg PO DAILY 12/24/16 Potassium Chloride [Klor-Con M20] 20 meq PO DAILY 01/06/18 Torsemide [Demadex] 20 mg PO DAILY 01/06/18 Arformoterol Tartrate [Brovana] 15 mcg IH BID 01/07/18 Aspirin [Aspirin EC] 81 mg PO DAILY 01/07/18 Budesonide [Pulmicort] 0.25 mg IH DAILY 01/07/18 Celecoxib [Celebrex] 200 mg PO DAILY 01/07/18 Ipratropium/Albuterol Sulfate 3 ml [facility] QID #120 ampul.[facility] 03/02/18 [Duoneb] RX: predniSONE [Deltasone] 20 mg PO DIRECTED #32 tablet 03/02/18 Consultations this Visit: None Procedures this Visit: None Allergies/Adverse Reactions: Allergies Allergy/AdvReac Type Severity Reaction Status Date / Time melon Allergy Severe seizures Verified 03/14/18 07:30 dextromethorphan HBr Allergy Unknown Verified 03/14/18 07:30 [From NyQuil] doxylamine succinate Allergy Unknown Verified 03/14/18 07:30 [From NyQuil] hydrocodone bitartrate Allergy Unknown Verified 03/14/18 07:30 [From Bonnie] pseudoephedrine HCl Allergy Unknown Verified 03/14/18 07:30 [From NyQuil] hydrocodone AdvReac Unknown Mental Verified 03/14/18 07:30 Status Changes Discharge Summary: Patient was admitted observation for nausea and vomiting- which is controlled and patient has been able to tolerate PO meds and diet. He was evaluated by PT/OT and would benefit from a SNF stay for strengthening. Dr Cruz has agreed to admit patient to Skilled care for PT/OT/ST. Hospital Course: Patient received IV fluids, antibiotics, and nebulizer treatments - Final Diagnosis (1) Bilateral pneumonia Problems: Continued treatment with oral antibiotics Right or Left: Right (2) COPD (chronic obstructive pulmonary disease) Problems: Continued with HFN txs Right or Left: Right (3) Dementia Problems: Patient closely monitored for fall risk Right or Left: Right (4) Fall Problems: Patient being monitored closely to prevent falls- bed alarms on Right or Left: Right (5) Generalized osteoarthritis Problems: Continuing on pain medications Right or Left: Right (6) HTN (hypertension) Problems: Stable on home meds Right or Left: Right (7) Minor head injury Problems: Monitoring for increased confusion Right or Left: Right
[2018-03-19 08:57] LABS: ABG BASE EXCESS 0.3 (-2 - +2); ABG PH 7.47 (7.35-7.45)
== END 2018-03-15 09:00 ==
LOC: ED 17:58 → SOUTH 22:54
PROVIDERS: ADMIT Nurse Practitioner Family; ATTEND Nurse Practitioner Family
DX: S09.90XA Unspecified injury of head, initial encounter (principal); J18.9 Pneumonia, unspecified organism; I50.9 Heart failure, unspecified; J44.9 Chronic obstructive pulmonary disease, unspecified; I10 Essential (primary) hypertension; E78.5 Hyperlipidemia, unspecified; W19.XXXA Unspecified fall, initial encounter
CPT/HCPCS: 36600; 74022; 80053; 82803; 85025; 96374; 99217; 99218; 99224; J2405; A9270; G0378; J7030; S1016

== ENCOUNTER 2018-03-15 09:06 | Inpatient (IN) | payer MEDICARE, OTHER ==
--- NOTE | 2018-03-15 11:36 | History and Physical Report ---
History of Present Illnes - History of Present Illness Reason for Visit: gait disturbance History of Present Illness: Patient is an 87yo white male with past medical history of COPD and CHF, presented to ED with ongoing cough and dyspnea refractory to oral Prednisone and Azithromycin. Patient's family reports patient has become more short of breath, more productive cough with sputum production and chest pain. Patient was seen in the ED and found to have lung masses and transfered to [facility]. There he was treated for acute exacerbation of COPD, and pneumonia (felt to be related to strep pneumonia). The work-up noted on his lung mass felt to be related to cancer. Patient was discharged home where he lives with his daughter. He started to have some nausea and vomiting. the daughter was not able to provide for his care and was subsequently admitted to observation care. It was felt that he would benefit from SNF care for a short period of time and has been admitted for further PT and OT. - Past Medical History Cardiac: HTN, Hyperlipidemia Pulmonary: COPD Heme/Onc: Cancer (prostate) Musculoskeletal: Osteoarthritis (Shoulders, Knees and hips ) - Past Surgical History Past Surgical History: Appendectomy, Other (Hemorrhoidectomy, vasectomy) - Past Social History Smoke: # pack years (50) Alcohol: None Drugs: None Lives: With Family Domestic Violence: Negative - Health Maintenance Health Maintenance: denies: Cholesterol, Influenza Vaccine, Pneumococcal Vaccine Pneumonia Vaccine: No - Unable to Obtain History Unable to Obtain: No Review of Systems - Review of Systems Constitutional: negative: Fever, Chills, Weakness Eyes: negative: pain, vision change ENT: negative: Ear Pain, Ear Discharge, Nose Pain, Nose Discharge, Nose Congestion, Throat Swelling Respiratory: Cough, Shortness of Breath, SOB with Excertion. negative: Dry, Hemoptysis, Pleuritic Pain, Sputum Cardiovascular: negative: Chest Pain, Palpitations, Edema, Light Headedness Gastrointestinal: Constipation. negative: Nausea, Vomiting, Abdominal Pain, Diarrhea, Melena, Hematochezia Genitourinary: negative: Dysuria, Frequency Musculoskeletal: negative: Back Pain, Leg Pain Skin: negative: Rash Neurological: Confusion. negative: Weakness, Numbness, Incoordination, Change in Speech - Medications/Allergies Allergies/Adverse Reactions: Allergies Allergy/AdvReac Type Severity Reaction Status Date / Time melon Allergy Severe seizures Verified 03/14/18 07:30 dextromethorphan HBr Allergy Unknown Verified 03/14/18 07:30 [From NyQuil] doxylamine succinate Allergy Unknown Verified 03/14/18 07:30 [From NyQuil] hydrocodone bitartrate Allergy Unknown Verified 03/14/18 07:30 [From [place]] pseudoephedrine HCl Allergy Unknown Verified 03/14/18 07:30 [From NyQuil] hydrocodone AdvReac Unknown Mental Verified 03/14/18 07:30 Status Changes Exam - Exam Vital Signs: Vital Signs (72 hours) 03/14/18 03/15/18 03/15/18 00:23 08:50 10:55 Temperature 97.9 F Pulse Rate [ 84 Right] Respiratory 18 Rate Blood Pressure 121/63 Blood Pressure 149/80 [Left Arm] Blood Pressure 121/63 117/70 [R ARM] O2 Sat by Pulse 95 Oximetry General: Alert, Oriented to Person, Oriented to Time, Cooperative. No: Oriented to Place HEENT: Atraumatic, PERRLA, EOMI, Mouth Mucous membr. moist/[place], Nose Mucous membr. moist/[place] Neck: Normal Range of Motion Carotids: WNL Thyroid: WNL Lungs: Clear to auscultation, Normal air movement, Speaks full Sentences Cardiovascular: Regular rate, Normal S1, Normal S2, No murmurs Abdomen: Normal bowel sounds, Soft, No tenderness, No hepatospenomegaly, No masses Integumentary: Normal, [place], Warm, Dry Extremities: No clubbing, No cyanosis, No edema, Normal pulses, No tenderness/swelling Neurological: Normal gait, Normal speech, Strength Equal Bilat, Normal tone, Sensation intact, Cranial nerves 3-12 NL, Reflexes 2+ Psych/Mental Status: Mental status NL, Mood NL, Appropriate Affect, Intact Judgment Assessment/Plan - Assessment/Plan (1) Gait disturbance Status: Acute Current Visit: Yes Assessment: PT and OT evaluation (2) Carcinoma, lung Status: Acute Current Visit: Yes Assessment: Pallative care is the current treatment for this (3) COPD (chronic obstructive pulmonary disease) Status: Chronic Current Visit: No Qualifiers: COPD type: emphysema Assessment: continue home meds (4) Generalized osteoarthritis Status: Chronic Current Visit: No (5) HTN (hypertension) Status: Chronic Current Visit: No Qualifiers: Hypertension type: essential hypertension Qualified Code(s): I10 - Essential (primary) hypertension Assessment: continue home meds VTE Assessment - RISK FACTOR SCORE VTE RISK FACTOR SCORES: AGE OVER 60 YEARS, ACUTE RESPIRATORY FAILURE/SEVERE COPD
[2018-03-15] MEDS ORDERED: oxyCODONE/ACETAMINOPHEN 5/325 TABLET PO PRN (13:14)
[2018-03-15] MEDS: FUROSEMIDE 40 MG TABLET PO SCH (16:31)
[2018-03-15] MEDS: ENOXAPARIN SODIUM 30 MG/0.3 ML DISP.SYRIN SQ SCH (16:32)
[2018-03-15 16:56] VITALS: BMI 19.7
[2018-03-15] MEDS: IPRATROPIUM/ALBUTEROL SULFATE 3 ML AMPUL.NEB NEB SCH ×2 (17:41→20:47)
[2018-03-15] MEDS: FLUTICASONE PROPIONATE 50 MCG BLST.W.DEV IH SCH ×2 (17:42→21:10)
[2018-03-16] MEDS: FUROSEMIDE 40 MG TABLET PO SCH ×2 (06:11→14:59)
[2018-03-16] MEDS: IPRATROPIUM/ALBUTEROL SULFATE 3 ML AMPUL.NEB NEB SCH ×4 (08:51→22:02)
[2018-03-16] MEDS: FLUTICASONE PROPIONATE 50 MCG BLST.W.DEV IH SCH ×2 (10:10→20:59)
[2018-03-16] MEDS: POTASSIUM CHLORIDE 20 MEQ TABLET.ER PO SCH (10:11)
[2018-03-16] MEDS: ASPIRIN EC 81 MG TABLET.DR PO SCH (10:11)
[2018-03-16] MEDS: FERROUS SULFATE 325 MG TABLET PO SCH (12:18)
[2018-03-16] MEDS: ENOXAPARIN SODIUM 30 MG/0.3 ML DISP.SYRIN SQ SCH (17:46)
[2018-03-17] MEDS: FUROSEMIDE 40 MG TABLET PO SCH ×2 (06:18→12:54)
[2018-03-17] MEDS: IPRATROPIUM/ALBUTEROL SULFATE 3 ML AMPUL.NEB NEB SCH ×4 (09:19→22:40)
[2018-03-17] MEDS: FLUTICASONE PROPIONATE 50 MCG BLST.W.DEV IH SCH ×2 (09:24→20:59)
[2018-03-17] MEDS: ASPIRIN EC 81 MG TABLET.DR PO SCH (09:24)
[2018-03-17] MEDS: POTASSIUM CHLORIDE 20 MEQ TABLET.ER PO SCH (09:24)
[2018-03-17] MEDS: ENOXAPARIN SODIUM 30 MG/0.3 ML DISP.SYRIN SQ SCH (12:54)
[2018-03-17] MEDS: FERROUS SULFATE 325 MG TABLET PO SCH (12:54)
[2018-03-18] MEDS: FUROSEMIDE 40 MG TABLET PO SCH ×2 (06:13→14:20)
[2018-03-18] MEDS: IPRATROPIUM/ALBUTEROL SULFATE 3 ML AMPUL.NEB NEB SCH ×4 (09:33→22:09)
[2018-03-18] MEDS: POTASSIUM CHLORIDE 20 MEQ TABLET.ER PO SCH (09:39)
[2018-03-18] MEDS: ASPIRIN EC 81 MG TABLET.DR PO SCH (09:39)
[2018-03-18] MEDS: FLUTICASONE PROPIONATE 50 MCG BLST.W.DEV IH SCH ×2 (09:40→21:02)
[2018-03-18] MEDS: FERROUS SULFATE 325 MG TABLET PO SCH (11:00)
[2018-03-18] MEDS: ENOXAPARIN SODIUM 30 MG/0.3 ML DISP.SYRIN SQ SCH (14:20)
[2018-03-19] MEDS: FUROSEMIDE 40 MG TABLET PO SCH ×2 (06:31→15:06)
[2018-03-19 07:11] LABS: MEAN CORPUSCULAR HEMOGLOBIN 28.3 pg (28.0-34.0)
[2018-03-19 07:28] LABS: eGFR (Non-African) > 60
--- NOTE | 2018-03-19 07:45 | Inpatient Progress Note ---
Subjective - Required Recertification Statement I anticipate X number of days because-include discharge plan: 5 - Review of Systems Events since last encounter: Patient has been doing very well with nursing staff and therapies. According to staff patient has had several episodes when he has gotten upset while his family is there. During my visit with he was asking about his wallet and felt like people were trying to take his belongings. However, he is easily redi rected. The plan is for patient to go home with daughter until placement is made for patient to [facility]. General: Fatigue HEENT: Denies: Head Aches, Eye Pain, Sore Throat Pulmonary: Cough. Denies: Dyspnea Cardiovascular: Denies: Chest Pain, Light Headedness Gastrointestinal: Denies: Nausea, Vomiting, Abdominal Pain Genitourinary: Frequency. Denies: Dysuria Musculoskeletal: Shoulder Pain, Arm Pain, Back Pain Neurological: Weakness Objective - Exam Vitals and I&O: Vital Signs Temp 98.2 F 03/18/18 21:00 Pulse 80 03/18/18 21:00 Resp 16 03/18/18 21:00 BP 110/74 03/18/18 21:00 Pulse Ox 95 03/18/18 21:00 Intake & Output 03/18/18 03/18/18 03/19/18 11:59 23:59 11:59 Intake Total 420 360 120 Output Total 200 800 Balance 220 360 -680 Intake: Oral 420 360 120 Output: Urine 200 800 Other: Voiding Method Urinal Urinal # Voids 2 4 # Bowel Movements 0 General: Alert, Oriented to Person, Oriented to Place, Cooperative, No acute distress HEENT: Mouth Mucous membr. moist/[place], Nose Mucous membr. moist/[place] Neck: Supple, +2 carotid pulse wo bruit Lungs: Clear to auscultation, Normal air movement, Speaks full Sentences Cardiovascular: Regular rate, Normal S1, Normal S2 Abdomen: Normal bowel sounds Extremities: No edema, Normal pulses, No tenderness/swelling Skin: Normal, Warm, Dry, Other (old bruising to forehead) Neurological: Strength Equal Bilat, Sensation intact - Results Results: Laboratory Results WBC 6.50 K/ul (4.00-12.00) 03/19/18 06:20 RBC 3.21 M/ul (3.90-5.20) L 03/19/18 06:20 Hgb 9.1 g/dL (12.0-18.0) L 03/19/18 06:20 Hct 28.3 % (37.0-53.0) L 03/19/18 06:20 MCV 88.0 fl (80.0-100.0) 03/19/18 06:20 MCH 28.3 pg (28.0-34.0) 03/19/18 06:20 MCHC 32.2 g/dL (30.0-36.0) 03/19/18 06:20 RDW 15.4 % (11.3-14.3) H 03/19/18 06:20 Plt Count 247 K/mm3 (130-400) 03/19/18 06:20 Neut % (Auto) 62.0 % (39.0-79.0) 03/19/18 06:20 Lymph % (Auto) 14.9 % (16.0-50.0) L 03/19/18 06:20 [place] % (Auto) 21.6 % (0.0-11.0) H 03/19/18 06:20 Eos % (Auto) 1.1 % (0.0-6.8) 03/19/18 06:20 Baso % (Auto) 0.4 (0.0-1.5) 03/19/18 06:20 Neut # (Auto) 4.0 # k/uL (1.4-7.7) 03/19/18 06:20 Lymph # (Auto) 1.0 # k/uL (0.6-4.0) 03/19/18 06:20 [place] # (Auto) 1.4 # k/uL (0.0-0.9) H 03/19/18 06:20 Eos # (Auto) 0.1 # k/uL (0.0-0.6) 03/19/18 06:20 Baso # (Auto) 0.0 # k/uL (0.0-0.5) 03/19/18 06:20 Sodium 134 mmol/L (136-145) L 03/19/18 06:20 Potassium 3.6 mmol/L (3.5-5.1) 03/19/18 06:20 Chloride 105 mmol/L (98-107) 03/19/18 06:20 Carbon Dioxide 24 mmol/L (22-30) 03/19/18 06:20 BUN 24 mg/dL (9-20) H 03/19/18 06:20 Creatinine 1.19 mg/dL (0.66-1.25) 03/19/18 06:20 Estimated Creat Clear 27 03/19/18 06:20 Est GFR ( Amer) > 60 (60-) 03/19/18 06:20 Est GFR (Non-Af Amer) > 60 (60-) 03/19/18 06:20 Glucose 104 mg/dL (74-106) 03/19/18 06:20 Calcium 8.8 mg/dL (8.4-10.2) 03/19/18 06:20 Total Bilirubin 0.2 mg/dL (0.2-1.3) 03/19/18 06:20 AST 30 U/L (15-46) 03/19/18 06:20 ALT 32 U/L (13-69) 03/19/18 06:20 Alkaline Phosphatase 92 U/L (38-126) 03/19/18 06:20 Total Protein 6.5 g/dL (6.3-8.2) 03/19/18 06:20 Albumin 3.2 g/dL (3.5-5.0) L 03/19/18 06:20 Assessment/Plan - Assessment/Plan (1) Gait disturbance Status: Acute Current Visit: Yes Assessment: Patient cooperative with therapy- was up ambulating in the [place] today Plan: Continue with PT/OT (2) Weakness Status: Acute Current Visit: Yes Assessment: Patient was up ambulating in the [place] with therapy today Plan: Continue treatment plan (3) COPD (chronic obstructive pulmonary disease) Status: Acute Current Visit: No Qualifiers: COPD type: emphysema Assessment: LCTA, no SOA with exertion Plan: continue with duoneb and flovent (4) Dementia Status: Acute Current Visit: No Assessment: patient has had some episodes of confusion and paranoid behavior Plan: Patient room close to nurses station, personal and bed alarms on (5) Osteoarthritis Status: Acute Current Visit: No Qualifiers: Osteoarthritis location: knee Osteoarthritis type: unspecified Laterality: left Qualified Code(s): M17.12 - Unilateral primary osteoarthritis, left knee Assessment: Stable with medications and ambulation Plan: Continue with current plan of care
[2018-03-19 08:07] LABS: ANISOCYTOSIS 1+ (NEGATIVE); BASOPHILS % 1 % (0-2); EOSINOPHILS % 0 % (0-7); MONOCYTES % 16 % (0-11); OVALOCYTES 1+ (NEGATIVE); SEGMENTED NEUTROPHILS % 63 % (39-79); TEAR DROP CELLS 1+ (NEGATIVE)
[2018-03-19] MEDS: IPRATROPIUM/ALBUTEROL SULFATE 3 ML AMPUL.NEB NEB SCH ×4 (08:35→21:27)
[2018-03-19] MEDS: ASPIRIN EC 81 MG TABLET.DR PO SCH (09:43)
[2018-03-19] MEDS: FLUTICASONE PROPIONATE 50 MCG BLST.W.DEV IH SCH ×2 (09:43→21:19)
[2018-03-19] MEDS: POTASSIUM CHLORIDE 20 MEQ TABLET.ER PO SCH (09:43)
[2018-03-19] MEDS: FERROUS SULFATE 325 MG TABLET PO SCH (12:09)
[2018-03-19] MEDS ORDERED: MAGNESIUM HYDROXIDE 2,400 MG/30 ML UDC PO PRN (13:17)
[2018-03-19] MEDS: ENOXAPARIN SODIUM 30 MG/0.3 ML DISP.SYRIN SQ SCH (15:06)
[2018-03-20] MEDS: FUROSEMIDE 40 MG TABLET PO SCH ×2 (06:25→14:10)
[2018-03-20] MEDS: IPRATROPIUM/ALBUTEROL SULFATE 3 ML AMPUL.NEB NEB SCH ×4 (09:30→21:13)
[2018-03-20] MEDS: FLUTICASONE PROPIONATE 50 MCG BLST.W.DEV IH SCH ×2 (09:50→21:13)
[2018-03-20] MEDS: ASPIRIN EC 81 MG TABLET.DR PO SCH (09:50)
[2018-03-20] MEDS: POTASSIUM CHLORIDE 20 MEQ TABLET.ER PO SCH (09:51)
[2018-03-20] MEDS: FERROUS SULFATE 325 MG TABLET PO SCH (11:07)
[2018-03-20] MEDS: ENOXAPARIN SODIUM 30 MG/0.3 ML DISP.SYRIN SQ SCH (14:11)
[2018-03-20] MEDS ORDERED: HALOPERIDOL LACTATE 5 MG/ML VIAL IM ONE (17:35)
--- NOTE | 2018-03-20 17:37 | Inpatient Progress Note ---
Subjective - Required Recertification Statement I anticipate X number of days because-include discharge plan: 1 - Review of Systems Events since last encounter: Vanda- pt is very agitated- trying to get up on his own- risk for fall- getting aggressive with staff- due to aggression and gait instability 5mg of Haldol was given- patient was closely monitored- he finally calmed down and let nursing care for him- Seroquel will be started tomorrow to help with agitation. General: Fatigue HEENT: Dysphasia. Denies: Post Nasal Drip Pulmonary: Cough. Denies: Dyspnea Cardiovascular: Denies: Chest Pain, Light Headedness Gastrointestinal: Denies: Nausea, Vomiting, Abdominal Pain Genitourinary: Denies: Dysuria Musculoskeletal: Shoulder Pain, Back Pain Neurological: Weakness, Confusion Objective - Exam Vitals and I&O: Vital Signs Temp 97.9 F 03/20/18 09:00 Pulse 90 03/20/18 09:00 Resp 18 03/20/18 09:00 BP 123/63 03/20/18 09:00 Pulse Ox 97 03/20/18 09:00 Intake & Output 03/19/18 03/20/18 03/20/18 23:59 11:59 23:59 Intake Total 240 480 240 Output Total 400 Balance 240 80 240 Intake: Oral 240 480 240 Output: Urine 400 Other: Voiding Method Urinal Toilet # Voids 4 2 2 # Bowel Movements 2 General: Alert, Oriented to Person, Oriented to Place, Mild distress (due to confusion) HEENT: PERRLA, Mouth Mucous membr. moist/[place], Nose Mucous membr. moist/[place] Neck: +2 carotid pulse wo bruit Lungs: Clear to auscultation, Normal air movement, Speaks full Sentences Cardiovascular: Regular rate, Normal S1, Normal S2 Abdomen: Normal bowel sounds, Soft, No tenderness Extremities: Normal pulses, No tenderness/swelling Skin: Normal, [place], Warm, Dry, Other (healing bruises to forehead) Neurological: Strength Equal Bilat, Sensation intact Psych/Mental Status: Other (confusion- once he called down he was able to reorient) - Results Results: Laboratory Results WBC 6.50 K/ul (4.00-12.00) 03/19/18 06:20 RBC 3.21 M/ul (3.90-5.20) L 03/19/18 06:20 Hgb 9.1 g/dL (12.0-18.0) L 03/19/18 06:20 Hct 28.3 % (37.0-53.0) L 03/19/18 06:20 MCV 88.0 fl (80.0-100.0) 03/19/18 06:20 MCH 28.3 pg (28.0-34.0) 03/19/18 06:20 MCHC 32.2 g/dL (30.0-36.0) 03/19/18 06:20 RDW 15.4 % (11.3-14.3) H 03/19/18 06:20 Plt Count 247 K/mm3 (130-400) 03/19/18 06:20 Neut % (Auto) [place] 03/19/18 06:20 Lymph % (Auto) [place] 03/19/18 06:20 [place] % (Auto) [place] 03/19/18 06:20 Eos % (Auto) [place] 03/19/18 06:20 Baso % (Auto) [place] 03/19/18 06:20 Neut # (Auto) [place] 03/19/18 06:20 Lymph # (Auto) [place] 03/19/18 06:20 [place] # (Auto) [place] 03/19/18 06:20 Eos # (Auto) [place] 03/19/18 06:20 Baso # (Auto) [place] 03/19/18 06:20 Seg Neutrophils % 63 % (39-79) 03/19/18 06:20 Band Neutrophils % 3 % (0-12) 03/19/18 06:20 Lymphocytes % 10 % (16-50) L 03/19/18 06:20 Monocytes % 16 % (0-11) H 03/19/18 06:20 Eosinophils % 0 % (0-7) 03/19/18 06:20 Basophils % 1 % (0-2) 03/19/18 06:20 Myelocytes % 2 % (0-0) H 03/19/18 06:20 Reactive Lymphocytes 5 % (0-5) 03/19/18 06:20 Plt Clumps, EDTA Present (NEGATIVE) H 03/19/18 06:20 Plt Morphology Comment Abnormal (NORMAL) H 03/19/18 06:20 Polychromasia 1+ (NEGATIVE) H 03/19/18 06:20 Poikilocytosis 2+ (NEGATIVE) H 03/19/18 06:20 Anisocytosis 1+ (NEGATIVE) H 03/19/18 06:20 Tear Drop Cells 1+ (NEGATIVE) H 03/19/18 06:20 Ovalocytes 1+ (NEGATIVE) H 03/19/18 06:20 Sodium 134 mmol/L (136-145) L 03/19/18 06:20 Potassium 3.6 mmol/L (3.5-5.1) 03/19/18 06:20 Chloride 105 mmol/L (98-107) 03/19/18 06:20 Carbon Dioxide 24 mmol/L (22-30) 03/19/18 06:20 BUN 24 mg/dL (9-20) H 03/19/18 06:20 Creatinine 1.19 mg/dL (0.66-1.25) 03/19/18 06:20 Estimated Creat Clear 27 03/19/18 06:20 Est GFR ( Amer) > 60 (60-) 03/19/18 06:20 Est GFR (Non-Af Amer) > 60 (60-) 03/19/18 06:20 Glucose 104 mg/dL (74-106) 03/19/18 06:20 Calcium 8.8 mg/dL (8.4-10.2) 03/19/18 06:20 Total Bilirubin 0.2 mg/dL (0.2-1.3) 03/19/18 06:20 AST 30 U/L (15-46) 03/19/18 06:20 ALT 32 U/L (13-69) 03/19/18 06:20 Alkaline Phosphatase 92 U/L (38-126) 03/19/18 06:20 Total Protein 6.5 g/dL (6.3-8.2) 03/19/18 06:20 Albumin 3.2 g/dL (3.5-5.0) L 03/19/18 06:20 Assessment/Plan - Assessment/Plan (1) Gait disturbance Status: Acute Assessment: Unsteady when confused- does not want to use walker When he is alert he does well with walker Plan: Will continue with PT/OT (2) Weakness Status: Acute Assessment: Continuing to monitor Plan: Continue with PT/OT (3) COPD (chronic obstructive pulmonary disease) Status: Chronic Qualifiers: COPD type: emphysema Assessment: LCTA (4) Dementia Status: Acute Assessment: Pt very confused and agitated tonight- usually can redirect patient but he is not responding- still very aggravated (5) Osteoarthritis Status: Acute Qualifiers: Osteoarthritis location: knee Osteoarthritis type: unspecified Laterality: left Qualified Code(s): M17.12 - Unilateral primary osteoarthritis, left knee Assessment: stable on home meds Plan: continue home medications
[2018-03-21] MEDS: FUROSEMIDE 40 MG TABLET PO SCH ×2 (06:00→13:01)
[2018-03-21] MEDS: FLUTICASONE PROPIONATE 50 MCG BLST.W.DEV IH SCH ×2 (09:43→20:02)
[2018-03-21] MEDS: ASPIRIN EC 81 MG TABLET.DR PO SCH (09:43)
[2018-03-21] MEDS: POTASSIUM CHLORIDE 20 MEQ TABLET.ER PO SCH (09:43)
[2018-03-21] MEDS: IPRATROPIUM/ALBUTEROL SULFATE 3 ML AMPUL.NEB NEB SCH ×4 (09:45→20:01)
[2018-03-21] MEDS: ENOXAPARIN SODIUM 30 MG/0.3 ML DISP.SYRIN SQ SCH (13:01)
[2018-03-21] MEDS: FERROUS SULFATE 325 MG TABLET PO SCH (13:05)
[2018-03-21] MEDS: QUEtiapine FUMARATE 25 MG TABLET PO SCH (14:59)
--- NOTE | 2018-03-21 23:28 | Inpatient Progress Note ---
Subjective - Required Recertification Statement I anticipate X number of days because-include discharge plan: 1 - Review of Systems Events since last encounter: Catracho's family is still very undecided about whether he will go to [facility] or not. They say that they have one more family member to come into town. Trina has been working with them much of the day. Neli has been here from [facility] and they do have a bed available for him at [facility]. They have finally decided that he will got there tomorrow. General: Denies: Chills HEENT: Denies: Head Aches Pulmonary: Dyspnea, Cough Cardiovascular: Denies: Chest Pain Gastrointestinal: Nausea Genitourinary: Denies: Dysuria Musculoskeletal: Denies: Neck Pain Neurological: Weakness Objective - Exam Vitals and I&O: Vital Signs Temp 99 F 03/21/18 21:00 Pulse 94 H 03/21/18 21:00 Resp 20 03/21/18 21:00 BP 105/52 03/21/18 21:00 Pulse Ox 96 03/21/18 21:00 Intake & Output 03/20/18 03/21/18 03/21/18 23:59 11:59 23:59 Intake Total 290 360 240 Output Total 100 200 Balance 190 160 240 Weight 45.813 kg Intake: Oral 290 360 240 Output: Urine 100 200 Other: Voiding Method Urinal Urinal Urinal # Voids 2 5 General: Alert, Oriented to Person, Thin (small frail elderyly male) HEENT: Atraumatic, Other (Very worn dentures) Neck: Other (Limitation of ROM) Lungs: Wheezes, Prolonged Expiration, Decreased Air Movement Cardiovascular: Regular rate Abdomen: Normal bowel sounds, Soft Extremities: No clubbing Skin: Normal Neurological: Normal speech (at baseline) Psych/Mental Status: No: Intact Judgment - Results Results: Laboratory Results WBC 6.50 K/ul (4.00-12.00) 03/19/18 06:20 RBC 3.21 M/ul (3.90-5.20) L 03/19/18 06:20 Hgb 9.1 g/dL (12.0-18.0) L 03/19/18 06:20 Hct 28.3 % (37.0-53.0) L 03/19/18 06:20 MCV 88.0 fl (80.0-100.0) 03/19/18 06:20 MCH 28.3 pg (28.0-34.0) 03/19/18 06:20 MCHC 32.2 g/dL (30.0-36.0) 03/19/18 06:20 RDW 15.4 % (11.3-14.3) H 03/19/18 06:20 Plt Count 247 K/mm3 (130-400) 03/19/18 06:20 Neut % (Auto) Critical Care Clinical Nurse Specialist 03/19/18 06:20 Lymph % (Auto) Critical Care Clinical Nurse Specialist 03/19/18 06:20 Castro % (Auto) Critical Care Clinical Nurse Specialist 03/19/18 06:20 Eos % (Auto) Critical Care Clinical Nurse Specialist 03/19/18 06:20 Baso % (Auto) Critical Care Clinical Nurse Specialist 03/19/18 06:20 Neut # (Auto) Critical Care Clinical Nurse Specialist 03/19/18 06:20 Lymph # (Auto) Critical Care Clinical Nurse Specialist 03/19/18 06:20 Castro # (Auto) Critical Care Clinical Nurse Specialist 03/19/18 06:20 Eos # (Auto) Critical Care Clinical Nurse Specialist 03/19/18 06:20 Baso # (Auto) Critical Care Clinical Nurse Specialist 03/19/18 06:20 Seg Neutrophils % 63 % (39-79) 03/19/18 06:20 Band Neutrophils % 3 % (0-12) 03/19/18 06:20 Lymphocytes % 10 % (16-50) L 03/19/18 06:20 Monocytes % 16 % (0-11) H 03/19/18 06:20 Eosinophils % 0 % (0-7) 03/19/18 06:20 Basophils % 1 % (0-2) 03/19/18 06:20 Myelocytes % 2 % (0-0) H 03/19/18 06:20 Reactive Lymphocytes 5 % (0-5) 03/19/18 06:20 Plt Clumps, EDTA Present (NEGATIVE) H 03/19/18 06:20 Plt Morphology Comment Abnormal (NORMAL) H 03/19/18 06:20 Polychromasia 1+ (NEGATIVE) H 03/19/18 06:20 Poikilocytosis 2+ (NEGATIVE) H 03/19/18 06:20 Anisocytosis 1+ (NEGATIVE) H 03/19/18 06:20 Tear Drop Cells 1+ (NEGATIVE) H 03/19/18 06:20 Ovalocytes 1+ (NEGATIVE) H 03/19/18 06:20 Sodium 134 mmol/L (136-145) L 03/19/18 06:20 Potassium 3.6 mmol/L (3.5-5.1) 03/19/18 06:20 Chloride 105 mmol/L (98-107) 03/19/18 06:20 Carbon Dioxide 24 mmol/L (22-30) 03/19/18 06:20 BUN 24 mg/dL (9-20) H 03/19/18 06:20 Creatinine 1.19 mg/dL (0.66-1.25) 03/19/18 06:20 Estimated Creat Clear 27 03/19/18 06:20 Est GFR ( Amer) > 60 (60-) 03/19/18 06:20 Est GFR (Non-Af Amer) > 60 (60-) 03/19/18 06:20 Glucose 104 mg/dL (74-106) 03/19/18 06:20 Calcium 8.8 mg/dL (8.4-10.2) 03/19/18 06:20 Total Bilirubin 0.2 mg/dL (0.2-1.3) 03/19/18 06:20 AST 30 U/L (15-46) 03/19/18 06:20 ALT 32 U/L (13-69) 03/19/18 06:20 Alkaline Phosphatase 92 U/L (38-126) 03/19/18 06:20 Total Protein 6.5 g/dL (6.3-8.2) 03/19/18 06:20 Albumin 3.2 g/dL (3.5-5.0) L 03/19/18 06:20 Assessment/Plan - Assessment/Plan (1) Gait disturbance Status: Acute Current Visit: Yes Assessment: Currently seeing PT. Will continue this at [facility]. 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
[2018-03-22] MEDS: FUROSEMIDE 40 MG TABLET PO SCH (06:01)
[2018-03-22] MEDS: QUEtiapine FUMARATE 25 MG TABLET PO SCH (08:56)
[2018-03-22] MEDS: POTASSIUM CHLORIDE 20 MEQ TABLET.ER PO SCH (08:56)
[2018-03-22] MEDS: FLUTICASONE PROPIONATE 50 MCG BLST.W.DEV IH SCH (08:56)
[2018-03-22] MEDS: ASPIRIN EC 81 MG TABLET.DR PO SCH (08:56)
[2018-03-22 09:02] VITALS: BP 123/54
[2018-03-22] MEDS: IPRATROPIUM/ALBUTEROL SULFATE 3 ML AMPUL.NEB NEB SCH (09:40)
--- NOTE | 2018-03-22 20:50 | Discharge Summary ---
Discharge Summary - Discharge Sumary History of Present Illness: 87 year old male admitteed for skilled stay after diagnosis with pneumonia and lung cancer. He was admitted on March 15, and discharged on the morning of March 22 2018. He responded fairly well to therapy. His discharged to [facility] in [place]. Home Medications: Ambulatory Orders Medication Instructions Recorded Ferrous Sulfate [Feosol] 325 mg PO DAILY 12/24/16 Potassium Chloride [Klor-Con M20] 20 meq PO DAILY 01/06/18 Torsemide [Demadex] 20 mg PO DAILY 01/06/18 Arformoterol Tartrate [Brovana] 15 mcg IH BID 01/07/18 Aspirin [Aspirin EC] 81 mg PO DAILY 01/07/18 Budesonide [Pulmicort] 0.25 mg IH DAILY 01/07/18 Celecoxib [Celebrex] 200 mg PO DAILY 01/07/18 Ipratropium/Albuterol Sulfate 3 ml NEB QID #120 ampul.neb 03/02/18 [Duoneb] predniSONE [Deltasone] 20 mg PO DIRECTED #32 tablet 03/02/18 Consultations this Visit: Other (OT/PT) Allergies/Adverse Reactions: Allergies Allergy/AdvReac Type Severity Reaction Status Date / Time melon Allergy Severe seizures Verified 03/14/18 07:30 dextromethorphan HBr Allergy Unknown Verified 03/14/18 07:30 [From NyQuil] doxylamine succinate Allergy Unknown Verified 03/14/18 07:30 [From NyQuil] hydrocodone bitartrate Allergy Unknown Verified 03/14/18 07:30 [From [place]] pseudoephedrine HCl Allergy Unknown Verified 03/14/18 07:30 [From NyQuil] hydrocodone AdvReac Unknown Mental Verified 03/14/18 07:30 Status Changes Discharge Summary: He responded well to therapy. Continiuation of all medications in as prior in hospital with the discontinuation of Lovenox. - Final Diagnosis (1) Gait disturbance Right or Left: Left, Right (2) Weakness Right or Left: Left, Right (3) Lung mass Right or Left: Right (4) Osteoarthritis Right or Left: Left, Right
== END 2018-03-22 11:35 | DRG 194 ==
LOC: SOUTH 09:06
PROVIDERS: ADMIT Nurse Practitioner Family; ATTEND Nurse Practitioner Family
DX: J18.9 Pneumonia, unspecified organism (principal); C34.90 Malignant neoplasm of unspecified part of unspecified bronchus or lung; R45.1 Restlessness and agitation; R41.0 Disorientation, unspecified; I50.9 Heart failure, unspecified; J44.9 Chronic obstructive pulmonary disease, unspecified; I10 Essential (primary) hypertension; E78.5 Hyperlipidemia, unspecified; R11.2 Nausea with vomiting, unspecified; R06.02 Shortness of breath; R05 Cough
CPT/HCPCS: 80053; 85025; 94640; 94760; 99223; 99231; 99232; 99238; J1630; J1650; A9270